=== PATIENT | female | born 1985 | race Caucasian/White ===

== ENCOUNTER → 2018-08-27 | Outpatient (CLI) | payer MEDICAID, OTHER ==
[~2018-08-27] MED LIST: MULT-241 PO; OXYC-12 PO
--- NOTE | 2018-08-27 13:16 | Diagnostic Imaging Report ---
PROCEDURE: US Non-ob pelvis comp/trans. TECHNIQUE: Multiple realtime grayscale images were obtained of the pelvis in various projections endovaginally. Transabdominal imaging was also performed. INDICATION: Abnormal uterine bleeding. Findings: Uterus measures 6.3 x 4.5 x 3.5 cm. The endometrial thickness is 2 mm. There are no myometrial or endometrial masses. Uterus is retroflexed. The ovaries are obscured by bowel gas. There are no adnexal masses. There is no free pelvic fluid. Impression: Unremarkable sonographic appearance of the uterus. Both ovaries were obscured by bowel gas. There was however no evidence of adnexal mass. Dictated by: Dictated on workstation # [id number]
== END ==
LOC: RAD 11:37
PROVIDERS: ATTEND Obstetrics & Gynecology
DX: N93.8 Other specified abnormal uterine and vaginal bleeding (principal)
CPT/HCPCS: 76830; 76856

== ENCOUNTER 2018-09-20 10:04 | Outpatient (CLI) | payer OTHER ==
[~2018-09-20] VITALS: Ht 157.5 cm; Wt 72.1 kg
[2018-09-20 10:13] VITALS: BP 138/77
[2018-09-20 10:47] LABS: BASOPHILS % (AUTO) 1 % (0-10); EOSINOPHILS # (AUTO) 0.1 10^3/uL (0.0-0.3); EOSINOPHILS % (AUTO) 1 % (0-10); HEMATOCRIT 40 % (35-52); HEMOGLOBIN 13.3 G/DL (11.5-16.0); LYMPHOCYTES # (AUTO) 1.5 X 10^3 (1.0-4.0); LYMPHOCYTES % (AUTO) 27 % (12-44); MEAN CORPUSCULAR HEMOGLOBIN 26 PG (25-34); MEAN CORPUSCULAR HGB CONC 34 G/DL (32-36); MEAN CORPUSCULAR VOLUME 77 FL (80-99); MEAN PLATELET VOLUME 10.3 FL (7.4-10.4); MONOCYTES # (AUTO) 0.5 X 10^3 (0.0-1.0); MONOCYTES % (AUTO) 8 % (0-12); NEUTROPHILS # (AUTO) 3.6 X 10^3 (1.8-7.8); NEUTROPHILS % (AUTO) 63 % (42-75); PLATELET COUNT 347 10^3/uL (130-400); RED CELL DISTRIBUTION WIDTH 14.1 % (10.0-14.5); WHITE BLOOD COUNT 5.7 10^3/uL (4.3-11.0)
== END 2018-09-20 10:35 | disposition home or self-care (01) ==
LOC: PREOP 10:04
PROVIDERS: ATTEND Obstetrics & Gynecology
DX: Z01.812 Encounter for preprocedural laboratory examination (principal); Z11.2 Encounter for screening for other bacterial diseases; N85.00 Endometrial hyperplasia, unspecified
CPT/HCPCS: 36415; 85025; 86850; 86900; 86901; 87081

== ENCOUNTER 2018-09-27 06:18 | Day surgery (SDC) | payer OTHER ==
[~2018-09-27] VITALS: Ht 157.5 cm; Wt 72.1 kg
[2018-09-27] VITALS (14 sets, daily range): BP systolic 93–128; BP diastolic 39–96
[2018-09-27] MEDS ORDERED: LACTATED RINGERS 1,000 ML IV ONE (06:21)
--- OUTSIDE RECORDS SUMMARY | 2018-09-27 06:21 | XMS REPORT ---
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 Name Role Phone Migration, Doctor Unavailable Unavailable PROBLEMS Type Condition ICD9-CM Code [id number] Code Onset Dates Condition Status SNOMED Code Problem Dysfunctional uterine bleeding N93.8 Active 63737922 Problem Endometrial hyperplasia without atypia, complex N85.01 Active 35360809281668410 Problem Anxiety F41.9 Active 84163258 Problem Depressive disorder, not elsewhere classified F32.9 Active 01415259 ALLERGIES No Information ENCOUNTERS Encounter Location Date Diagnosis [facility] [address] [address] Jul, Endometrial hyperplasia without atypia, complex N85.01 and Dysfunctional uterine bleeding N93.8 [place] [id number] [address] Jun, Endometrial hyperplasia without atypia, complex N85.01 and Dysfunctional uterine bleeding N93.8 [facility] [id number] [place] [address] Jun, Strep throat J02.0 and Sore throat J02.9 [facility] [id number] [place] [address] Jun, [facility] [address] [address] Jun, Acute nasopharyngitis J00 and Sore throat J02.9 [facility] [address] [address] Jun, [facility] [address] [address] 28 Jun, 2018 Irregular bleeding N92.6 and Dysfunctional uterine bleeding N93.8 [place] [address] [id number] [address] Jun, [facility] [id number] [place] [address] May, [facility] [id number] [place] [address] May, Acute bacterial conjunctivitis of left eye H10.32 [place] [id number] [place] [address] Jan, Encounter for immunization Z23 [place] [id number] [place] [address] Jun, [place] [id number] [place] [address] Jun, Irregular bleeding N92.6 [place] [id number] [place] [address] May, Well woman exam with routine gynecological exam Z01.419 and Irregular bleeding N92.6 [place] [id number] [place] [address] May, Anxiety state, unspecified F41.1 and Depressive disorder, not elsewhere classified F32.9 [place] [id number] [place] [address] Mar, Anxiety F41.9 and Irregular bleeding N92.6 [place] [id number] [place] [address] Mar, [place] [id number] [place] [address] Mar, Encounter for immunization Z23 [facility] [id number] [place] [address] Sep, Acute bacterial conjunctivitis of right eye H10.31 [facility] [id number] [place] [address] Mar, Sore throat J02.9 [facility] [place] [facility] [address] [id number] [place] [address] 14 Jul, 2014 [facility] [place] [facility] [address] [id number] [place] [address] Jul, [facility] [place] [facility] [address] [id number] [place] [address] Mar, [facility] [place] [facility] [address] [id number] [place] [address] Mar, [facility] [place] [facility] [address] [id number] [place] [address] Jul, [facility] [place] [facility] [address] [id number] [place] [address] Jul, [facility] [place] [facility] [address] [id number] [place] [address] Jul, [facility] [place] [facility] [address] [id number] [place] [address] Jul, [facility] [place] [facility] [address] [id number] [place] [address] Jul, [facility] [place] [facility] [address] [id number] [place] [address] Jul, [facility] [place] [facility] [address] [id number] [place] [address] Jul, [facility] [place] [facility] [address] [id number] [address] Jun, [facility] [place] [facility] [address] [id number] [place] [address] Jun, [facility] [place] [facility] [address] [id number] [place] [address] Jun, [facility] [place] [facility] [address] [id number] [place] [address] Jun, [facility] [place] [facility] [address] [id number] [place] [address] 10 Jun, 2013 [facility] [address] [id number] [place] [address] Jun, [facility] [place] [facility] [address] [id number] [place] [address] Nov, [facility] [address] [id number] [place] [address] Nov, [facility] [place] [facility] [address] [id number] [place] [address] Oct, [facility] [address] [id number] [place] [address] Sep, [facility] [place] [facility] [address] [id number] [place] [address] Sep, [facility] [address] [id number] [place] [address] Jul, [facility] [address] [id number] [place] [address] Mar, [facility] [place] [facility] [address] [id number] [place] [address] Mar, [facility] [address] [facility] [id number] [place] [address] Mar, [facility] [place] [facility] [address] [id number] [place] [address] Mar, [facility] [place] [facility] [address] [id number] [place] [address] Jan, [facility] [place] [facility] [address] [id number] [place] [address] Jan, [facility] [place] [facility] [address] [id number] [place] [address] Jan, [facility] [place] [facility] [address] [id number] [place] [address] Jan, [facility] [place] [facility] [address] [id number] [place] [address] Jan, [facility] [place] [facility] [address] [id number] [place] [address] Jan, [facility] [place] [facility] [address] [id number] [place] [address] Jan, [facility] [place] [facility] [address] [id number] [place] [address] 29 Dec, 2011 [facility] [place] [facility] [address] [id number] [place] [address] 28 Dec, 2011 [facility] [place] [facility] [address] [id number] [place] [address] Dec, [facility] [place] [facility] [address] [id number] [place] [address] Dec, [facility] [place] [facility] [address] [id number] [place] [address] Nov, [facility] [place] [facility] [address] [id number] [place] [address] Nov, [facility] [place] [facility] [address] [id number] [address] Nov, [facility] [place] [facility] [address] [id number] [address] Nov, [facility] [place] [facility] [address] [id number] [place] [address] Nov, [facility] [place] [facility] [address] [id number] [place] [address] Oct, [facility] [place] [facility] [address] [id number] [address] Oct, [facility] [place] [facility] [address] [id number] [place] [address] Sep, [facility] [place] [facility] [address] [id number] [address] 15 Sep, 2011 [facility] [address] [id number] [place] [address] 13 Sep, 2011 [facility] [place] [facility] [address] [id number] [place] [address] 12 Sep, 2011 [facility] [place] [facility] [address] [facility] [id number] [place] [address] 11 Sep, 2011 [facility] [place] [facility] [address] [id number] [place] [address] 10 Sep, 2011 [facility] [place] [facility] [address] [id number] [place] [address] 07 Sep, 2011 [facility] [place] [facility] [address] [id number] [place] [address] August, [facility] [address] [address] August, [facility] [place] [facility] [address] [id number] [place] [address] 23 Jun, 2011 [facility] [place] [facility] [address] [id number] [place] [address] 19 Jun, 2011 [facility] [place] [facility] [address] [place] [id number] [address] Jun, [facility] [place] [facility] [address] [id number] [place] [address] Jun, [facility] [place] [facility] [address] [id number] [place] [address] 30 May, 2011 [facility] [place] [facility] [address] [id number] [place] [address] May, [facility] [place] [facility] [address] [facility] [id number] [place] [address] 2010 [facility] [place] [facility] [address] [id number] [place] [address] 14 Mar, 2009 [facility] [place] [facility] [address] [id number] [address] 27 Jan, 2009 [facility] [address] [address] 10 Sep, 2008 [facility] [address] [facility] [id number] [place] [address] August, [facility] [address] [address] Jul, [facility] [address] [facility] [id number] [address] Jun, [facility] [address] [address] 11 Jun, 2008 [facility] [address] [address] 14 May, 2008 [facility] [address] [address] 31 Mar, 2008 [facility] [address] [address] 16 Mar, 2008 [facility] [id number] [address] 13 Mar, 2008 [facility] [id number] [address] 13 Mar, 2008 IMMUNIZATIONS No Known Immunizations SOCIAL HISTORY Never Assessed REASON FOR VISIT [facility] PLAN OF CARE VITAL SIGNS MEDICATIONS Unknown Medications RESULTS No Results PROCEDURES No Known procedures INSTRUCTIONS MEDICATIONS ADMINISTERED No Known Medications MEDICAL (GENERAL) HISTORY Type Description Date Surgical History No know Surgical history Hospitalization History childbirth only
--- OUTSIDE RECORDS SUMMARY | 2018-09-27 06:21 | XMS REPORT ---
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01 and Dysfunctional uterine bleeding N93.8 [place] [address] [address] Jun, Endometrial hyperplasia without atypia, complex N85.01 and Dysfunctional uterine bleeding N93.8 [facility] [id number] [place] [address] Jun, Strep throat J02.0 and Sore throat J02.9 [facility] [id number] [place] [address] Jun, [facility] [address] [address] Jun, Acute nasopharyngitis J00 and Sore throat J02.9 [facility] [address] [address] Jun, [facility] [address] [address] 28 Jun, 2018 Irregular bleeding N92.6 and Dysfunctional uterine bleeding N93.8 [place] [address] [place] [address] [id number] [address] Jun, [facility] [id number] [place] [address] May, [facility] [id number] [place] [address] May, Acute bacterial conjunctivitis of left eye H10.32 [place] [id number] [place] [address] Jan, Encounter for immunization Z23 [place] [address] [id number] [place] [address] Jun, [place] [id number] [place] [address] Jun, Irregular bleeding N92.6 [place] [id number] [place] [address] May, Well woman exam with routine gynecological exam Z01.419 and Irregular bleeding N92.6 [place] [id number] [place] [address] May, Anxiety state, unspecified F41.1 and Depressive disorder, not elsewhere classified F32.9 [place] [address] [place] [address] Mar, Anxiety F41.9 and Irregular bleeding N92.6 [place] [address] [place] [id number] [place] [address] Mar, [place] [address] [place] [address] Mar, Encounter for immunization Z23 [facility] [id number] [place] [address] Sep, Acute bacterial conjunctivitis of right eye H10.31 [facility] [address] [place] [address] Mar, Sore throat J02.9 [facility] [place] [facility] [address] [id number] [place] [address] 14 Jul, 2014 [facility] [place] [facility] [address] [id number] [place] [address] Jul, [facility] [place] [facility] [address] [id number] [place] [address] Mar, [facility] [place] [facility] [address] [id number] [place] [address] Mar, [facility] [place] [facility] [address] [id number] [place] [address] Jul, [facility] [place] [facility] [address] [id number] [place] [address] Jul, [facility] [place] [facility] [address] [id number] [place] [address] Jul, [facility] [place] [facility] [address] [id number] [place] [address] Jul, [facility] [place] [facility] [address] [id number] [place] [address] Jul, [facility] [place] [facility] [address] [id number] [place] [address] Jul, [facility] [place] [facility] [address] [id number] [place] [address] Jul, [facility] [place] [facility] [address] [id number], [place] [address] Jun, [facility] [place] [facility] [address] [id number] [place] [address] Jun, [facility] [place] [facility] [address] [id number] [place] [address] Jun, [facility] [place] [facility] [address] [id number] [place] [address] Jun, [facility] [place] [facility] [address] [id number] [place] [address] 10 Jun, 2013 [facility] [address] [id number] [place] [address] Jun, [facility] [place] [facility] [address] [id number] [place] [address] Nov, [facility] [address] [id number] [place] [address] Nov, [facility] [place] [facility] [address] [id number] [place] [address] Oct, [facility] [address] [id number] [place] [address] Sep, [facility] [place] [facility] [address] [id number] [place] [address] Sep, [facility] [address] [id number] [place] [address] Jul, [facility] [address] [id number] [place] [address] Mar, [facility] [place] [facility] [address] [id number] [place] [address] Mar, [facility] [address] [facility] [id number] [place] [address] Mar, [facility] [place] [facility] [address] [id number] [place] [address] Mar, [facility] [place] [facility] [address] [id number] [place] [address] Jan, [facility] [place] [facility] [address] [id number] [place] [address] Jan, [facility] [place] [facility] [address] [id number] [place] [address] Jan, [facility] [place] [facility] [address] [id number] [place] [address] Jan, [facility] [place] [facility] [address] [id number] [place] [address] Jan, [facility] [place] [facility] [address] [id number] [place] [address] Jan, [facility] [place] [facility] [address] [id number] [place] [address] Jan, [facility] [place] [facility] [address] [id number] [place] [address] 29 Dec, 2011 [facility] [place] [facility] [address] [id number] [place] [address] 28 Dec, 2011 [facility] [place] [facility] [address] [id number] [place] [address] Dec, [facility] [place] [facility] [address] [id number] [place] [address] Dec, [facility] [place] [facility] [address] [id number] [place] [address] Nov, [facility] [place] [facility] [address] [id number] [place] [address] Nov, [facility] [place] [facility] [address] [id number], [place] [address] Nov, [facility] [place] [facility] [address] [id number], [place] [address] Nov, [facility] [place] [facility] [address] [id number], [place] [address] Nov, [facility] [place] [facility] [address] [id number] [place] [address] Oct, [facility] [place] [facility] [address] [id number], [place] [address] Oct, [facility] [place] [facility] [address] [id number], [place] [address] Sep, [facility] [place] [facility] [address] [id number], [place] [address] 15 Sep, 2011 [facility] [address] [id number] [place] [address] 13 Sep, 2011 [facility] [place] [facility] [address] [id number] [place] [address] 12 Sep, 2011 [facility] [place] [facility] [address] [facility] [id number] [place] [address] 11 Sep, 2011 [facility] [place] [facility] [address] [id number] [place] [address] 10 Sep, 2011 [facility] [place] [facility] [address] [id number] [place] [address] 07 Sep, 2011 [facility] [place] [facility] [address] [id number] [place] [address] August, [facility] [address] [place] [address] August, [facility] [place] [facility] [address] [id number] [place] [address] 23 Jun, 2011 [facility] [place] [facility] [address] [id number] [place] [address] 19 Jun, 2011 [facility] [place] [facility] [id number] [place] [address] Jun, [facility] [place] [facility] [address] [id number] [place] [address] Jun, [facility] [place] [facility] [address] [id number] [place] [address] 30 May, 2011 [facility] [place] [facility] [address] [id number] [place] [address] May, [facility] [place] [facility] [address] [facility] [id number] [place] [address] 2010 [facility] [place] [facility] [address] [id number] [place] [address] 14 Mar, 2009 [facility] [place] [facility] [address] [id number] [address] 27 Jan, 2009 [facility] [id number] [address] 10 Sep, 2008 [facility] [address] [facility] [id number], [place] [address] August, [facility] [id number], [place] [address] Jul, [facility] [address] [facility] [id number], [place] [address] Jun, [facility] [id number], [place] [address] 11 Jun, 2008 [facility] [id number], [place] [address] 14 May, 2008 [facility] [id number], [place] [address] 31 Mar, 2008 [facility] [id number], [place] [address] 16 Mar, 2008 [facility] [address] [id number], [place] [address] 13 Mar, 2008 [facility] [address] [id number], [place] [address] 13 Mar, 2008 IMMUNIZATIONS No Known Immunizations SOCIAL HISTORY Never Assessed REASON FOR VISIT [facility] [place] VITAL SIGNS MEDICATIONS Unknown Medications RESULTS No Results PROCEDURES No Known procedures INSTRUCTIONS MEDICATIONS ADMINISTERED No Known Medications MEDICAL (GENERAL) HISTORY Type Description Date Surgical History No know Surgical history Hospitalization History childbirth only
--- OUTSIDE RECORDS SUMMARY | 2018-09-27 06:22 | XMS REPORT ---
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.8 Active 86249887 Problem Endometrial hyperplasia without atypia, complex N85.01 Active [id number] Problem Anxiety F41.9 Active 09535429 Problem Depressive disorder, not elsewhere classified F32.9 Active 84962252 ALLERGIES No Information ENCOUNTERS Encounter Location Date Diagnosis [facility] [address] [address] Jul, Endometrial hyperplasia without atypia, complex N85.01 and Dysfunctional uterine bleeding N93.8 [facility] [id number] [place] [address] Jun, Endometrial hyperplasia without atypia, complex N85.01 and Dysfunctional uterine bleeding N93.8 [facility] [id number] [place] [address] 14 Jun, 2018 Strep throat J02.0 and Sore throat J02.9 [facility] [id number] [place] [address] 14 Jun, 2018 [facility] [id number] [place] [address] Jun, Acute nasopharyngitis J00 and Sore throat J02.9 [facility] [id number] [place] [address] 07 Jun, 2018 [facility] [id number] [place] [address] Jun, Irregular bleeding N92.6 and Dysfunctional uterine bleeding N93.8 [place] [id number] [place] [address] Jun, [place] [id number] [place] [address] May, [facility] [id number] [place] [address] May, Acute bacterial conjunctivitis of left eye H10.32 [place] [id number] [place] [address] Jan, Encounter for immunization Z23 [place] [id number] [place] [address] Jun, [place] [id number] [place] [address] Jun, Irregular bleeding N92.6 [place] [id number] [place] [address] May, Well woman exam with routine gynecological exam Z01.419 and Irregular bleeding N92.6 [place] [id number] [place] [address] May, Anxiety state, unspecified F41.1 and Depressive disorder, not elsewhere classified F32.9 [place] [id number] [place] [address] Mar, Anxiety F41.9 and Irregular bleeding N92.6 [place] [id number] [place] [address] Mar, [place] [id number] [place] [address] Mar, Encounter for immunization Z23 [facility] [id number] [place] [address] Sep, Acute bacterial conjunctivitis of right eye H10.31 [facility] [id number] [place] [address] Mar, Sore throat J02.9 [facility] [address] [facility] [id number] [place] [address] Jul, [facility] [address] [facility] [id number] [place] [address] Jul, [facility] [address] [facility] [id number] [place] [address] Mar, [facility] [address] [facility] [id number] [place] [address] Mar, [facility] [address] [facility] [id number] [place] [address] Jul, [facility] [address] [id number] [place] [address] Jul, [facility] [address] [id number] [place] [address] Jul, [facility] [address] [facility] [id number] [place] [address] Jul, [facility] [id number] [place] [address] Jul, [facility] [id number] [place] [address] Jul, [facility] [address] [facility] [id number] [address] Jul, [facility] [address] [facility] [id number] [place] [address] Jun, [facility] [address] [facility] [id number] [place] [address] Jun, [facility] [address] [facility] [id number] [address] Jun, [facility] [address] [address] Jun, [facility] [place] [facility] [address] [id number] [place] [address] Jun, [facility] [place] [facility] [address] [id number] [place] [address] Jun, [facility] [place] [facility] [address] [facility] [id number] [place] [address] Nov, [facility] [place] [facility] [address] [id number] [place] [address] Nov, [facility] [place] [facility] [address] [id number] [place] [address] Oct, [facility] [place] [facility] [address] [facility] [id number] [place] [address] Sep, [facility] [place] [facility] [address] [facility] [id number] [place] [address] Sep, [facility] [place] [facility] [address] [facility] [id number] [place] [address] Jul, [facility] [place] [facility] [address] [facility] [id number] [place] [address] Mar, [facility] [place] [facility] [address] [facility] [id number] [place] [address] Mar, [facility] [place] [facility] [address] [facility] [id number] [place] [address] 17 Mar, 2012 [facility] [place] [facility] [address] [facility] [id number] [place] [address] Mar, [facility] [place] [facility] [address] [id number] [place] [address] Jan, [facility] [place] [facility] [address] [facility] [id number] [place] [address] Jan, [facility] [place] [facility] [address] [facility] [id number], [place] [address] Jan, [facility] [place] [facility] [address] [id number] [place] [address] 17 Jan, 2012 [facility] [place] [facility] [address] [id number] [place] [address] Jan, [facility] [place] [facility] [address] [id number] [place] [address] Jan, [facility] [place] [facility] [address] [id number] [place] [address] 04 Jan, 2012 [facility] [place] [facility] [address] [id number] [place] [address] 29 Dec, 2011 [facility] [place] [facility] [address] [id number] [place] [address] 28 Dec, 2011 [facility] [place] [facility] [address] [id number] [place] [address] 27 Dec, 2011 [facility] [place] [facility] [address] [id number] [place] [address] Dec, [facility] [place] [facility] [address] [id number] [place] [address] Nov, [facility] [place] [facility] [address] [id number] [place] [address] Nov, [facility] [place] [facility] [address] [id number] [place] [address] Nov, [facility] [place] [facility] [address] [id number] [place] [address] Nov, [facility] [place] [facility] [address] [id number] [place] [address] Nov, [facility] [place] [facility] [address] [id number] [place] [address] Oct, [facility] [place] [facility] [address] [id number] [place] [address] Oct, [facility] [place] [facility] [address] [id number] [place] [address] 20 Sep, 2011 [facility] [place] [facility] [address] [id number] [place] [address] 15 Sep, 2011 [facility] [place] [facility] [address] [id number] [place] [address] 13 Sep, 2011 [facility] [place] [facility] [address] [id number] [place] [address] 12 Sep, 2011 [facility] [place] [facility] [address] [id number] [place] [address] 11 Sep, 2011 [facility] [place] [facility] [address] [id number] [place] [address] 10 Sep, 2011 [facility] [place] [facility] [address] [id number] [place] [address] 07 Sep, 2011 [facility] [place] [facility] [address] [id number] [place] [address] August, [facility] [place] [facility] [address] [id number] [place] [address] August, [facility] [place] [facility] [address] [id number] [place] [address] Jun, [facility] [place] [facility] [address] [id number] [place] [address] Jun, [facility] [place] [facility] [address] [id number] [place] [address] Jun, [facility] [place] [facility] [address] [id number] [place] [address] Jun, [facility] [place] [facility] [address] [id number] [place] [address] May, [facility] [place] [facility] [address] [id number] [place] [address] May, [facility] [place] [facility] [address] [id number] [place] [address] May, [facility] [place] [facility] [address] [address] 14 Mar, 2009 [facility] [address] [address] 27 Jan, 2009 [facility] [address] [address] 10 Sep, 2008 [facility] [address] [address] 13 Aug, 2008 [facility] [address] [address] 10 Jul, 2008 [facility] [id number] [place] [address] 11 Jun, 2008 [facility] [address] [address] 11 Jun, 2008 [facility] [address] [address] 14 May, 2008 [facility] [address] [address] 31 Mar, 2008 [facility] [address] [address] 16 Mar, 2008 [facility] [address] [address] 13 Mar, 2008 [facility] [id number] [address] 13 Mar, 2008 IMMUNIZATIONS No Known Immunizations SOCIAL HISTORY Never Assessed REASON FOR VISIT Requests return call PLAN OF CARE VITAL SIGNS MEDICATIONS Unknown Medications RESULTS No Results PROCEDURES No Known procedures INSTRUCTIONS MEDICATIONS ADMINISTERED No Known Medications MEDICAL (GENERAL) HISTORY Type Description Date Surgical History No know Surgical history Hospitalization History childbirth only
--- OUTSIDE RECORDS SUMMARY | 2018-09-27 06:22 | XMS REPORT ---
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.8 Active 17698379 Problem Endometrial hyperplasia without atypia, complex N85.01 Active [id number] Problem Anxiety F41.9 Active 06347935 Problem Depressive disorder, not elsewhere classified F32.9 Active 77096450 ALLERGIES No Information ENCOUNTERS Encounter Location Date Diagnosis [facility] [address] [address] Jul, Endometrial hyperplasia without atypia, complex N85.01 and Dysfunctional uterine bleeding N93.8 [place] [address] [address] Jun, Endometrial hyperplasia without atypia, complex N85.01 and Dysfunctional uterine bleeding N93.8 [facility] [id number] [place] [address] Jun, Strep throat J02.0 and Sore throat J02.9 [facility] [id number] [place] [address] Jun, [facility] [address] [address] Jun, Acute nasopharyngitis J00 and Sore throat J02.9 [facility] [address] [address] Jun, [facility] [address] [address] 28 Jun, 2018 Irregular bleeding N92.6 and Dysfunctional uterine bleeding N93.8 [place] [id number] [address] Jun, [facility] [id number] [place] [address] May, [facility] [id number] [place] [address] May, Acute bacterial conjunctivitis of left eye H10.32 [place] [id number] [place] [address] Jan, Encounter for immunization Z23 [place] [id number] [place] [address] Jun, [place] [id number] [place] [address] Jun, Irregular bleeding N92.6 [place] [id number] [place] [address] May, Well woman exam with routine gynecological exam Z01.419 and Irregular bleeding N92.6 [place] [id number] [place] [address] May, Anxiety state, unspecified F41.1 and Depressive disorder, not elsewhere classified F32.9 [place] [address] [place] [address] Mar, Anxiety F41.9 and Irregular bleeding N92.6 [place] [id number] [place] [address] Mar, [place] [address] [place] [address] Mar, Encounter for immunization Z23 [facility] [id number] [place] [address] Sep, Acute bacterial conjunctivitis of right eye H10.31 [facility] [address] [place] [address] Mar, Sore throat J02.9 [facility] [place] [facility] [address] [id number] [place] [address] 14 Jul, 2014 [facility] [place] [facility] [address] [id number] [place] [address] Jul, [facility] [place] [facility] [address] [id number] [place] [address] Mar, [facility] [place] [facility] [address] [id number] [place] [address] Mar, [facility] [place] [facility] [address] [id number] [place] [address] Jul, [facility] [place] [facility] [address] [id number] [place] [address] Jul, [facility] [place] [facility] [address] [id number] [place] [address] Jul, [facility] [place] [facility] [address] [id number] [place] [address] Jul, [facility] [place] [facility] [address] [id number] [place] [address] Jul, [facility] [place] [facility] [address] [id number] [place] [address] Jul, [facility] [place] [facility] [address] [id number] [place] [address] Jul, [facility] [place] [facility] [address] [id number] [address] Jun, [facility] [place] [facility] [address] [id number] [place] [address] Jun, [facility] [place] [facility] [address] [id number] [place] [address] Jun, [facility] [place] [facility] [address] [id number] [place] [address] Jun, [facility] [place] [facility] [address] [id number] [place] [address] 10 Jun, 2013 [facility] [address] [id number] [place] [address] Jun, [facility] [place] [facility] [address] [id number] [place] [address] Nov, [facility] [address] [id number] [place] [address] Nov, [facility] [place] [facility] [address] [id number] [place] [address] Oct, [facility] [address] [id number] [place] [address] Sep, [facility] [place] [facility] [address] [id number] [place] [address] Sep, [facility] [address] [id number] [place] [address] Jul, [facility] [address] [id number] [place] [address] Mar, [facility] [place] [facility] [address] [id number] [place] [address] Mar, [facility] [address] [facility] [id number] [place] [address] Mar, [facility] [place] [facility] [address] [id number] [place] [address] Mar, [facility] [place] [facility] [address] [id number] [place] [address] Jan, [facility] [place] [facility] [address] [id number] [place] [address] Jan, [facility] [place] [facility] [address] [id number] [place] [address] Jan, [facility] [place] [facility] [address] [id number] [place] [address] Jan, [facility] [place] [facility] [address] [id number] [place] [address] Jan, [facility] [place] [facility] [address] [id number] [place] [address] Jan, [facility] [place] [facility] [address] [id number] [place] [address] Jan, [facility] [place] [facility] [address] [id number] [place] [address] 29 Dec, 2011 [facility] [place] [facility] [address] [id number] [place] [address] 28 Dec, 2011 [facility] [place] [facility] [address] [id number] [place] [address] Dec, [facility] [place] [facility] [address] [id number] [place] [address] Dec, [facility] [place] [facility] [address] [id number] [place] [address] Nov, [facility] [place] [facility] [address] [id number] [place] [address] Nov, [facility] [place] [facility] [address] [id number], [place] [address] Nov, [facility] [place] [facility] [address] [id number], [place] [address] Nov, [facility] [place] [facility] [address] [id number], [place] [address] Nov, [facility] [place] [facility] [address] [id number] [place] [address] Oct, [facility] [place] [facility] [address] [id number], [place] [address] Oct, [facility] [place] [facility] [address] [id number], [place] [address] Sep, [facility] [place] [facility] [address] [id number], [place] [address] 15 Sep, 2011 [facility] [address] [id number] [place] [address] 13 Sep, 2011 [facility] [place] [facility] [address] [id number] [place] [address] 12 Sep, 2011 [facility] [place] [facility] [address] [facility] [id number] [place] [address] 11 Sep, 2011 [facility] [place] [facility] [address] [id number] [place] [address] 10 Sep, 2011 [facility] [place] [facility] [address] [id number] [place] [address] 07 Sep, 2011 [facility] [place] [facility] [address] [id number] [place] [address] August, [facility] [id number] [place] [address] August, [facility] [place] [facility] [address] [id number] [place] [address] 23 Jun, 2011 [facility] [place] [facility] [address] [id number] [place] [address] 19 Jun, 2011 [facility] [place] [facility] [id number] [place] [address] Jun, [facility] [place] [facility] [address] [id number] [place] [address] Jun, [facility] [place] [facility] [address] [id number] [place] [address] 30 May, 2011 [facility] [place] [facility] [address] [id number] [place] [address] May, [facility] [place] [facility] [address] [facility] [id number] [place] [address] 2010 [facility] [place] [facility] [address] [id number] [place] [address] 14 Mar, 2009 [facility] [place] [facility] [address] [id number] [address] 27 Jan, 2009 [facility] [id number] [address] 10 Sep, 2008 [facility] [address] [facility] [id number], [place] [address] August, [facility] [id number] [place] [address] Jul, [facility] [address] [facility] [id number], [place] [address] Jun, [facility] [id number] [address] 11 Jun, 2008 [facility] [address], [place] [address] 14 May, 2008 [facility] [address] [place] [address] 31 Mar, 2008 [facility] [address] [address] 16 Mar, 2008 [facility] [address] [id number] [address] 13 Mar, 2008 [facility] [id number] [address] 13 Mar, 2008 IMMUNIZATIONS No Known Immunizations SOCIAL HISTORY Never Assessed REASON FOR VISIT [facility] PLAN OF CARE VITAL SIGNS MEDICATIONS Unknown Medications RESULTS No Results PROCEDURES No Known procedures INSTRUCTIONS MEDICATIONS ADMINISTERED No Known Medications MEDICAL (GENERAL) HISTORY Type Description Date Surgical History No know Surgical history Hospitalization History childbirth only
--- OUTSIDE RECORDS SUMMARY | 2018-09-27 06:22 | XMS REPORT ---
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 Active 82543797 Problem Endometrial hyperplasia without atypia, complex N85.01 Active [id number] Problem Anxiety F41.9 Active 52639739 Problem Depressive disorder, not elsewhere classified F32.9 Active 69793494 ALLERGIES No Information ENCOUNTERS Encounter Location Date Diagnosis [facility] [address] [address] Jul, Endometrial hyperplasia without atypia, complex N85.01 and Dysfunctional uterine bleeding N93.8 [place] [address] [address] Jun, Endometrial hyperplasia without atypia, complex N85.01 and Dysfunctional uterine bleeding N93.8 [facility] [id number] [place] [address] Jun, Strep throat J02.0 and Sore throat J02.9 [facility] [id number] [place] [address] Jun, [facility] [address] [address] Jun, Acute nasopharyngitis J00 and Sore throat J02.9 [facility] [address] [address] Jun, [facility] [address] [address] 28 Jun, 2018 Irregular bleeding N92.6 and Dysfunctional uterine bleeding N93.8 [place] [address] [place] [address] [address] Jun, [facility] [id number] [place] [address] May, [facility] [id number] [place] [address] May, Acute bacterial conjunctivitis of left eye H10.32 [place] [id number] [place] [address] Jan, Encounter for immunization Z23 [place] [id number] [place] [address] Jun, [place] [id number] [place] [address] Jun, Irregular bleeding N92.6 [place] [id number] [place] [address] May, Well woman exam with routine gynecological exam Z01.419 and Irregular bleeding N92.6 [place] [id number] [place] [address] May, Anxiety state, unspecified F41.1 and Depressive disorder, not elsewhere classified F32.9 [place] [address] [place] [address] Mar, Anxiety F41.9 and Irregular bleeding N92.6 [place] [id number] [place] [address] Mar, [place] [address] [place] [address] Mar, Encounter for immunization Z23 [facility] [id number] [place] [address] Sep, Acute bacterial conjunctivitis of right eye H10.31 [facility] [address] [place] [address] Mar, Sore throat J02.9 [facility] [place] [facility] [address] [id number] [place] [address] 14 Jul, 2014 [facility] [place] [facility] [address] [id number] [place] [address] Jul, [facility] [place] [facility] [address] [id number] [place] [address] Mar, [facility] [place] [facility] [address] [id number] [place] [address] Mar, [facility] [place] [facility] [address] [id number] [place] [address] Jul, [facility] [place] [facility] [address] [id number] [place] [address] Jul, [facility] [place] [facility] [address] [id number] [place] [address] Jul, [facility] [place] [facility] [address] [id number] [place] [address] Jul, [facility] [place] [facility] [address] [id number] [place] [address] Jul, [facility] [place] [facility] [address] [id number] [place] [address] Jul, [facility] [place] [facility] [address] [id number] [place] [address] Jul, [facility] [place] [facility] [address] [id number], [place] [address] Jun, [facility] [place] [facility] [address] [id number] [place] [address] Jun, [facility] [place] [facility] [address] [id number] [place] [address] Jun, [facility] [place] [facility] [address] [id number] [place] [address] Jun, [facility] [place] [facility] [address] [id number] [place] [address] 10 Jun, 2013 [facility] [address] [id number] [place] [address] Jun, [facility] [place] [facility] [address] [id number] [place] [address] Nov, [facility] [address] [id number] [place] [address] Nov, [facility] [place] [facility] [address] [id number] [place] [address] Oct, [facility] [address] [id number] [place] [address] Sep, [facility] [place] [facility] [address] [id number] [place] [address] Sep, [facility] [address] [id number] [place] [address] Jul, [facility] [address] [id number] [place] [address] Mar, [facility] [place] [facility] [address] [id number] [place] [address] Mar, [facility] [address] [facility] [id number] [place] [address] Mar, [facility] [place] [facility] [address] [id number] [place] [address] Mar, [facility] [place] [facility] [address] [id number] [place] [address] Jan, [facility] [place] [facility] [address] [id number] [place] [address] Jan, [facility] [place] [facility] [address] [id number] [place] [address] Jan, [facility] [place] [facility] [address] [id number] [place] [address] Jan, [facility] [place] [facility] [address] [id number] [place] [address] Jan, [facility] [place] [facility] [address] [id number] [place] [address] Jan, [facility] [place] [facility] [address] [id number] [place] [address] Jan, [facility] [place] [facility] [address] [id number] [place] [address] 29 Dec, 2011 [facility] [place] [facility] [address] [id number] [place] [address] 28 Dec, 2011 [facility] [place] [facility] [address] [id number] [place] [address] Dec, [facility] [place] [facility] [address] [id number] [place] [address] Dec, [facility] [place] [facility] [address] [id number] [place] [address] Nov, [facility] [place] [facility] [address] [id number] [place] [address] Nov, [facility] [place] [facility] [address] [id number], [place] [address] Nov, [facility] [place] [facility] [address] [id number], [place] [address] Nov, [facility] [place] [facility] [address] [id number], [place] [address] Nov, [facility] [place] [facility] [address] [id number] [place] [address] Oct, [facility] [place] [facility] [address] [id number], [place] [address] Oct, [facility] [place] [facility] [address] [id number], [place] [address] Sep, [facility] [place] [facility] [address] [id number], [place] [address] 15 Sep, 2011 [facility] [address] [id number] [place] [address] 13 Sep, 2011 [facility] [place] [facility] [address] [id number] [place] [address] 12 Sep, 2011 [facility] [place] [facility] [address] [facility] [id number] [place] [address] 11 Sep, 2011 [facility] [place] [facility] [address] [id number] [place] [address] 10 Sep, 2011 [facility] [place] [facility] [address] [id number] [place] [address] 07 Sep, 2011 [facility] [place] [facility] [address] [id number] [place] [address] August, [facility] [id number] [place] [address] August, [facility] [place] [facility] [address] [id number] [place] [address] 23 Jun, 2011 [facility] [place] [facility] [address] [id number] [place] [address] 19 Jun, 2011 [facility] [place] [facility] [address] [place] [id number] [place] [address] Jun, [facility] [place] [facility] [address] [id number] [place] [address] Jun, [facility] [place] [facility] [address] [id number] [place] [address] 30 May, 2011 [facility] [place] [facility] [address] [id number] [place] [address] May, [facility] [place] [facility] [address] [facility] [id number] [place] [address] 2010 [facility] [place] [facility] [address] [id number] [place] [address] 14 Mar, 2009 [facility] [place] [facility] [address], [place] [address] Jan, [facility] [address], [place] [address] Sep, [facility] [address], [place] [address] August, [facility] [address], [place] [address] Jul, [facility] [address], [place] [address] Jun, [facility] [address] [place] [address] Jun, [facility] [address], [place] [address] May, [facility] [id number] [address] Mar, [facility] [address], [place] [address] 16 Mar, 2008 [facility] [address], [place] [address] Mar, [facility] [address], [place] [address] Mar, IMMUNIZATIONS No Known Immunizations SOCIAL HISTORY Never Assessed REASON FOR VISIT [facility] [place] PLAN OF CARE VITAL SIGNS MEDICATIONS Medication Instructions Dosage Frequency Start Date End Date Duration Status Amoxicillin 500 mg 1 capsule by Oral route 3 times per day for 10 days Jun, Active Zithromax Z-Warren 250 mg 2 tablet by Oral route 1 time per day for 1 days then take 1 tab daily on days 2-5 Jun, Active Michelle 28 3-0.03 mg take 1 tablet by oral route once daily Jul, Active Lotrimin AF 1 % apply to the affected and surrounding areas of skin by Topical route 2 times per day Disp 30 g Mar, Active RESULTS No Results PROCEDURES No Known procedures INSTRUCTIONS MEDICATIONS ADMINISTERED No Known Medications MEDICAL (GENERAL) HISTORY Type Description Date Surgical History No know Surgical history Hospitalization History childbirth only
--- OUTSIDE RECORDS SUMMARY | 2018-09-27 06:22 | XMS REPORT ---
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 Active 58455235 Problem Endometrial hyperplasia without atypia, complex N85.01 Active [id number] Problem Anxiety F41.9 Active 00061292 Problem Depressive disorder, not elsewhere classified F32.9 Active 06003552 ALLERGIES No Information ENCOUNTERS Encounter Location Date Diagnosis [facility] [address] [address] Jul, Endometrial hyperplasia without atypia, complex N85.01 and Dysfunctional uterine bleeding N93.8 [place] [address] [address] Jun, Endometrial hyperplasia without atypia, complex N85.01 and Dysfunctional uterine bleeding N93.[address] [facility] [id number] [place] [address] Jun, Strep throat J02.0 and Sore throat J02.9 [facility] [id number] [place] [address] Jun, [facility] [address] [address] Jun, Acute nasopharyngitis J00 and Sore throat J02.9 [facility] [address] [address] Jun, [facility] [address] [address] 28 Jun, 2018 Irregular bleeding N92.6 and Dysfunctional uterine bleeding N93.8 [place] [address] [place] [address] [id number] [address] Jun, [facility] [id number] [place] [address] May, [facility] [id number] [place] [address] May, Acute bacterial conjunctivitis of left eye H10.32 [place] [address] [place] [id number] [place] [address] Jan, Encounter for immunization Z23 [place] [address] [place] [id number] [place] [address] Jun, [place] [address] [place] [address] [id number] [place] [address] Jun, Irregular bleeding N92.6 [place] [address] [place] [address] [id number] [place] [address] May, Well woman exam with routine gynecological exam Z01.419 and Irregular bleeding N92.6 [place] [address] [place] [address] [id number] [place] [address] May, Anxiety state, unspecified F41.1 and Depressive disorder, not elsewhere classified F32.9 [place] [id number] [place] [address] Mar, Anxiety F41.9 and Irregular bleeding N92.6 [place] [address] [place] [id number] [place] [address] Mar, [place] [id number] [place] [address] Mar, Encounter for immunization Z23 [facility] [address] [id number] [place] [address] Sep, Acute bacterial conjunctivitis of right eye H10.31 [facility] [id number] [place] [address] Mar, Sore throat J02.9 [facility] [place] [facility] [address] [id number] [place] [address] 14 Jul, 2014 [facility] [place] [facility] [address] [id number] [place] [address] Jul, [facility] [place] [facility] [address] [id number] [place] [address] Mar, [facility] [place] [facility] [address] [id number] [place] [address] Mar, [facility] [place] [facility] [address] [id number] [place] [address] Jul, [facility] [place] [facility] [address] [id number] [place] [address] Jul, [facility] [place] [facility] [address] [id number] [place] [address] Jul, [facility] [place] [facility] [address] [id number] [place] [address] Jul, [facility] [place] [facility] [address] [id number] [place] [address] Jul, [facility] [place] [facility] [address] [id number] [place] [address] Jul, [facility] [place] [facility] [address] [id number] [place] [address] Jul, [facility] [place] [facility] [address] [id number], [place] [address] Jun, [facility] [place] [facility] [address] [id number] [place] [address] Jun, [facility] [place] [facility] [address] [id number] [place] [address] Jun, [facility] [place] [facility] [address] [id number] [place] [address] Jun, [facility] [place] [facility] [address] [id number] [place] [address] 10 Jun, 2013 [facility] [address] [id number] [place] [address] Jun, [facility] [place] [facility] [address] [id number] [place] [address] Nov, [facility] [address] [id number] [place] [address] Nov, [facility] [place] [facility] [address] [id number] [place] [address] Oct, [facility] [address] [id number] [place] [address] Sep, [facility] [place] [facility] [address] [id number] [place] [address] Sep, [facility] [address] [id number] [place] [address] Jul, [facility] [address] [id number] [place] [address] Mar, [facility] [place] [facility] [address] [id number] [place] [address] Mar, [facility] [address] [facility] [id number] [place] [address] Mar, [facility] [place] [facility] [address] [id number] [place] [address] Mar, [facility] [place] [facility] [address] [id number] [place] [address] Jan, [facility] [place] [facility] [address] [id number] [place] [address] Jan, [facility] [place] [facility] [address] [id number] [place] [address] Jan, [facility] [place] [facility] [address] [id number] [place] [address] Jan, [facility] [place] [facility] [address] [id number] [place] [address] Jan, [facility] [place] [facility] [address] [id number] [place] [address] Jan, [facility] [place] [facility] [address] [id number] [place] [address] Jan, [facility] [place] [facility] [address] [id number] [place] [address] 29 Dec, 2011 [facility] [place] [facility] [address] [id number] [place] [address] 28 Dec, 2011 [facility] [place] [facility] [address] [id number] [place] [address] Dec, [facility] [place] [facility] [address] [id number] [place] [address] Dec, [facility] [place] [facility] [address] [id number] [place] [address] Nov, [facility] [place] [facility] [address] [id number] [place] [address] Nov, [facility] [place] [facility] [address] [id number], [place] [address] Nov, [facility] [place] [facility] [address] [id number], [place] [address] Nov, [facility] [place] [facility] [address] [id number], [place] [address] Nov, [facility] [place] [facility] [address] [id number] [place] [address] Oct, [facility] [place] [facility] [address] [id number], [place] [address] Oct, [facility] [place] [facility] [address] [id number], [place] [address] Sep, [facility] [place] [facility] [address] [id number], [place] [address] 15 Sep, 2011 [facility] [address] [id number] [place] [address] 13 Sep, 2011 [facility] [place] [facility] [address] [id number] [place] [address] 12 Sep, 2011 [facility] [place] [facility] [address] [facility] [id number] [place] [address] 11 Sep, 2011 [facility] [place] [facility] [address] [id number] [place] [address] 10 Sep, 2011 [facility] [place] [facility] [address] [id number] [place] [address] 07 Sep, 2011 [facility] [place] [facility] [address] [id number] [place] [address] August, [facility] [id number] [place] [address] August, [facility] [place] [facility] [address] [id number] [place] [address] 23 Jun, 2011 [facility] [place] [facility] [address] [id number] [place] [address] 19 Jun, 2011 [facility] [place] [facility] [id number] [place] [address] Jun, [facility] [place] [facility] [address] [id number] [place] [address] Jun, [facility] [place] [facility] [address] [id number] [place] [address] 30 May, 2011 [facility] [place] [facility] [address] [id number] [place] [address] May, [facility] [place] [facility] [address] [facility] [id number] [place] [address] 2010 [facility] [place] [facility] [address] [id number] [place] [address] 14 Mar, 2009 [facility] [place] [facility] [id number] [address] 27 Jan, 2009 [facility] [address], [place] [address] 10 Sep, 2008 [facility] [address] [facility] [id number], [place] [address] August, [facility] [address], [place] [address] Jul, [facility] [address] [facility] [id number], [place] [address] Jun, [facility] [id number] [place] [address] 11 Jun, 2008 [facility] [id number] [address] 14 May, 2008 [facility] [id number] [address] 31 Mar, 2008 [facility] [id number], [place] [address] 16 Mar, 2008 [facility] [id number], [place] [address] 13 Mar, 2008 [facility] [id number] [address] 13 Mar, 2008 IMMUNIZATIONS No Known Immunizations SOCIAL HISTORY Never Assessed REASON FOR VISIT [facility] [place] PLAN OF CARE VITAL SIGNS MEDICATIONS Unknown Medications RESULTS No Results PROCEDURES No Known procedures INSTRUCTIONS MEDICATIONS ADMINISTERED No Known Medications MEDICAL (GENERAL) HISTORY Type Description Date Surgical History No know Surgical history Hospitalization History childbirth only
--- OUTSIDE RECORDS SUMMARY | 2018-09-27 06:23 | XMS REPORT ---
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 92042508 Problem Anxiety F41.9 Active 37034787 ALLERGIES No Information ENCOUNTERS Encounter Location Date Diagnosis [place] [address] [address] Jun, [facility] [address] [address] Jun, Strep throat J02.0 and Sore throat J02.9 [facility] [address] [place] [address] [id number] [place] [address] Jun, [facility] [address] [address] Jun, Acute nasopharyngitis J00 and Sore throat J02.9 [place] [address] [place] [id number] [place] [address] Jun, [facility] [address] [address] Jun, Irregular bleeding N92.6 and Dysfunctional uterine bleeding N93.8 [facility] [address] [address] Jun, [facility] [address] [address] [id number] [place] [address] May, [facility] [id number] [place] [address] May, Acute bacterial conjunctivitis of left eye H10.32 [facility] [id number] [place] [address] Jan, Encounter for immunization Z23 [facility] [id number] [place] [address] Jun, [facility] [id number] [place] [address] Jun, Irregular bleeding N92.6 [facility] [id number] [place] [address] May, Well woman exam with routine gynecological exam Z01.419 and Irregular bleeding N92.6 [place] [address] [address] May, Anxiety state, unspecified F41.1 and Depressive disorder, not elsewhere classified F32.9 [facility] [address] [address] Mar, Anxiety F41.9 and Irregular bleeding N92.6 [facility] [address] [id number] [place] [address] Mar, [facility] [id number] [place] [address] Mar, Encounter for immunization Z23 [facility] [id number] [place] [address] Sep, Acute bacterial conjunctivitis of right eye H10.31 [facility] [id number] [place] [address] Mar, Sore throat J02.9 [facility] [id number] [place] [address] 14 Jul, 2014 [facility] [address] [place] [address] [id number] [place] [address] 13 Jul, 2014 [facility] [address] [address] Mar, [facility] [place] [facility] [address] [id number] [place] [address] Mar, [facility] [place] [facility] [address] [id number] [place] [address] Jul, [facility] [place] [facility] [address] [id number] [place] [address] Jul, [facility] [place] [facility] [address] [id number] [place] [address] Jul, [facility] [place] [facility] [address] [id number] [place] [address] Jul, [facility] [place] [facility] [address] [id number] [place] [address] Jul, [facility] [place] [facility] [address] [id number] [place] [address] Jul, [facility] [place] [facility] [address] [id number] [place] [address] Jul, [facility] [place] [facility] [address] [id number] [place] [address] Jun, [facility] [place] [facility] [address] [id number] [place] [address] Jun, [facility] [place] [facility] [address] [id number] [place] [address] Jun, [facility] [place] [facility] [address] [id number] [place] [address] Jun, [facility] [place] [facility] [address] [id number] [place] [address] Jun, [facility] [place] [facility] [address] [id number] [place] [address] Jun, [facility] [place] [facility] [address] [id number] [place] [address] Nov, [facility] [place] [facility] [address] [id number] [place] [address] Nov, [facility] [place] [facility] [address] [id number] [place] [address] Oct, [facility] [place] [facility] [address] [id number] [place] [address] Sep, [facility] [place] [facility] [address] [id number] [place] [address] Sep, [facility] [place] [facility] [address] [id number] [place] [address] Jul, [facility] [place] [facility] [address] [id number] [place] [address] Mar, [facility] [place] [facility] [address] [id number] [place] [address] Mar, [facility] [place] [facility] [address] [id number] [place] [address] Mar, [facility] [place] [facility] [address] [id number] [place] [address] Mar, [facility] [place] [facility] [address] [id number] [place] [address] Jan, [facility] [place] [facility] [address] [id number] [place] [address] 24 Jan, 2012 [facility] [place] [facility] [address] [id number] [place] [address] Jan, [facility] [place] [facility] [address] [id number] [place] [address] Jan, [facility] [place] [facility] [address] [id number] [place] [address] Jan, [facility] [place] [facility] [address] [id number] [place] [address] Jan, [facility] [place] [facility] [address] [id number] [place] [address] Jan, [facility] [place] [facility] [address] [id number] [place] [address] 29 Dec, 2011 [facility] [place] [facility] [address] [id number] [place] [address] 28 Dec, 2011 [facility] [place] [facility] [address] [id number] [place] [address] 27 Dec, 2011 [facility] [place] [facility] [address] [id number] [place] [address] 12 Dec, 2011 [facility] [place] [facility] [address] [id number] [place] [address] Nov, [facility] [place] [facility] [address] [id number] [place] [address] Nov, [facility] [place] [facility] [address] [id number] [place] [address] Nov, [facility] [place] [facility] [address] [id number] [place] [address] Nov, [facility] [place] [facility] [address] [id number] [place] [address] Nov, [facility] [place] [facility] [address] [id number] [place] [address] Oct, [facility] [place] [facility] [address] [id number] [place] [address] Oct, [facility] [place] [facility] [address] [id number] [address] Sep, [facility] [place] [facility] [address] [id number] [place] [address] Sep, [facility] [place] [facility] [address] [id number] [place] [address] Sep, [facility] [place] [facility] [address] [id number] [place] [address] Sep, [facility] [place] [facility] [address] [id number] [place] [address] 11 Sep, 2011 [facility] [address] [id number] [place] [address] 10 Sep, 2011 [facility] [address] [id number] [place] [address] 07 Sep, 2011 [facility] [address] [id number] [place] [address] August, [facility] [address] [id number] [place] [address] August, [facility] [address] [id number] [place] [address] Jun, [facility] [address] [id number] [place] [address] Jun, [facility] [address] [id number] [place] [address] Jun, [facility] [address] [id number] [place] [address] Jun, [facility] [address] [id number] [place] [address] May, [facility] [address] [id number] [place] [address] May, [facility] [address] [id number] [place] [address] May, [facility] [address] [id number] [place] [address] 14 Mar, 2009 [facility] [address] [id number] [place] [address] 27 Jan, 2009 [facility] [place] [facility] [address] [id number] [place] [address] 10 Sep, 2008 [facility] [address] [id number] [place] [address] August, [facility] [address] [place] [address] [id number] [address] Jul, [facility] [address] [address] Jun, [facility] [address] [address] Jun, [facility] [address] [id number] [place] [address] May, [facility] [address] [address] Mar, [facility] [id number] [place] [address] 16 Mar, 2008 [facility] [address] [address] 13 Mar, 2008 [facility] [address] [address] 13 Mar, 2008 IMMUNIZATIONS No Known Immunizations SOCIAL HISTORY Never Assessed REASON FOR VISIT EMR-[facility] [place]AN OF CARE VITAL SIGNS MEDICATIONS Unknown Medications RESULTS No Results PROCEDURES No Known procedures INSTRUCTIONS MEDICATIONS ADMINISTERED No Known Medications MEDICAL (GENERAL) HISTORY Type Description Date Surgical History No know Surgical history Hospitalization History childbirth only
--- OUTSIDE RECORDS SUMMARY | 2018-09-27 06:23 | XMS REPORT ---
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 53064400 Problem Anxiety F41.9 Active 76080210 ALLERGIES No Information ENCOUNTERS Encounter Location Date Diagnosis [place] [address] [address] Jun, [facility] [address] [address] Jun, Strep throat J02.0 and Sore throat J02.9 [facility] [address] [place] [id number] [place] [address] Jun, [facility] [address] [address] Jun, Acute nasopharyngitis J00 and Sore throat J02.9 [place] [address] [place] [id number] [place] [address] Jun, [facility] [address] [address] Jun, Irregular bleeding N92.6 and Dysfunctional uterine bleeding N93.8 [facility] [address] [address] Jun, [facility] [address] [place] [id number] [place] [address] May, [facility] [id number] [place] [address] May, Acute bacterial conjunctivitis of left eye H10.32 [facility] [id number] [place] [address] Jan, Encounter for immunization Z23 [facility] [id number] [place] [address] Jun, [facility] [id number] [place] [address] Jun, Irregular bleeding N92.6 [facility] [id number] [place] [address] May, Well woman exam with routine gynecological exam Z01.419 and Irregular bleeding N92.6 [place] [address] [address] May, Anxiety state, unspecified F41.1 and Depressive disorder, not elsewhere classified F32.9 [facility] [address] [address] Mar, Anxiety F41.9 and Irregular bleeding N92.6 [facility] [id number] [place] [address] Mar, [facility] [id number] [place] [address] Mar, Encounter for immunization Z23 [facility] [id number] [place] [address] Sep, Acute bacterial conjunctivitis of right eye H10.31 [facility] [id number] [place] [address] Mar, Sore throat J02.9 [facility] [address] [place] [id number] [place] [address] 14 Jul, 2014 [facility] [address] [place] [id number] [place] [address] 13 Jul, 2014 [facility] [address] [address] Mar, [facility] [place] [facility] [address] [id number] [place] [address] Mar, [facility] [place] [facility] [address] [id number] [place] [address] Jul, [facility] [place] [facility] [address] [id number] [place] [address] Jul, [facility] [place] [facility] [address] [id number] [place] [address] Jul, [facility] [place] [facility] [address] [id number] [place] [address] Jul, [facility] [place] [facility] [address] [id number] [place] [address] Jul, [facility] [place] [facility] [address] [id number] [place] [address] Jul, [facility] [place] [facility] [address] [id number] [place] [address] Jul, [facility] [place] [facility] [address] [id number] [place] [address] Jun, [facility] [place] [facility] [address] [id number] [place] [address] Jun, [facility] [place] [facility] [address] [id number] [place] [address] Jun, [facility] [place] [facility] [address] [id number] [place] [address] Jun, [facility] [place] [facility] [address] [id number] [place] [address] Jun, [facility] [place] [facility] [address] [id number] [place] [address] Jun, [facility] [place] [facility] [address] [id number] [place] [address] Nov, [facility] [place] [facility] [address] [id number] [place] [address] Nov, [facility] [place] [facility] [address] [id number] [place] [address] Oct, [facility] [place] [facility] [address] [id number] [place] [address] Sep, [facility] [place] [facility] [address] [id number] [place] [address] Sep, [facility] [place] [facility] [address] [id number] [place] [address] Jul, [facility] [place] [facility] [address] [id number] [place] [address] Mar, [facility] [place] [facility] [address] [id number] [place] [address] Mar, [facility] [place] [facility] [address] [id number] [place] [address] Mar, [facility] [place] [facility] [address] [id number] [place] [address] Mar, [facility] [place] [facility] [address] [id number] [place] [address] Jan, [facility] [place] [facility] [address] [id number] [place] [address] 24 Jan, 2012 [facility] [place] [facility] [address] [id number] [place] [address] Jan, [facility] [place] [facility] [address] [id number] [place] [address] Jan, [facility] [place] [facility] [address] [id number] [place] [address] Jan, [facility] [place] [facility] [address] [id number] [place] [address] Jan, [facility] [place] [facility] [address] [id number] [place] [address] Jan, [facility] [place] [facility] [address] [id number] [place] [address] 29 Dec, 2011 [facility] [place] [facility] [address] [id number] [place] [address] 28 Dec, 2011 [facility] [place] [facility] [address] [id number] [place] [address] 27 Dec, 2011 [facility] [place] [facility] [address] [id number] [place] [address] 12 Dec, 2011 [facility] [place] [facility] [address] [id number] [place] [address] Nov, [facility] [place] [facility] [address] [id number] [place] [address] Nov, [facility] [place] [facility] [address] [id number] [place] [address] Nov, [facility] [place] [facility] [address] [id number] [place] [address] Nov, [facility] [place] [facility] [address] [id number] [place] [address] Nov, [facility] [place] [facility] [address] [id number] [place] [address] Oct, [facility] [place] [facility] [address] [id number] [place] [address] Oct, [facility] [place] [facility] [address] [id number], [place] [address] Sep, [facility] [place] [facility] [address] [id number] [place] [address] Sep, [facility] [place] [facility] [address] [id number] [place] [address] Sep, [facility] [place] [facility] [address] [id number] [place] [address] Sep, [facility] [place] [facility] [address] [id number] [place] [address] 11 Sep, 2011 [facility] [address] [id number] [place] [address] 10 Sep, 2011 [facility] [address] [id number] [place] [address] 07 Sep, 2011 [facility] [address] [id number] [place] [address] August, [facility] [address] [id number] [place] [address] August, [facility] [address] [id number] [place] [address] Jun, [facility] [address] [id number] [place] [address] Jun, [facility] [address] [id number] [place] [address] Jun, [facility] [address] [id number] [place] [address] Jun, [facility] [address] [id number] [place] [address] May, [facility] [address] [id number] [place] [address] May, [facility] [address] [id number] [place] [address] May, [facility] [address] [id number] [place] [address] 14 Mar, 2009 [facility] [address] [id number] [place] [address] 27 Jan, 2009 [facility] [place] [facility] [address] [id number] [place] [address] 10 Sep, 2008 [facility] [address] [id number] [place] [address] August, [facility] [address] [id number] [address] Jul, [facility] [address], [place] [address] Jun, [facility] [address], [place] [address] Jun, [facility] [id number] [place] [address] May, [facility] [id number] [address] Mar, [facility] [id number] [place] [id number] 16 Mar, 2008 [facility] [id number] [address] 13 Mar, 2008 [facility] [address] [place] [address] 13 Mar, 2008 IMMUNIZATIONS No Known Immunizations SOCIAL HISTORY Never Assessed REASON FOR VISIT EMR-[facility] PLAN OF CARE VITAL SIGNS MEDICATIONS Unknown Medications RESULTS No Results PROCEDURES No Known procedures INSTRUCTIONS MEDICATIONS ADMINISTERED No Known Medications MEDICAL (GENERAL) HISTORY Type Description Date Surgical History No know Surgical history Hospitalization History childbirth only
--- OUTSIDE RECORDS SUMMARY | 2018-09-27 06:23 | XMS REPORT ---
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 39505670 Problem Anxiety F41.9 Active 64260512 ALLERGIES No Information ENCOUNTERS Encounter Location Date Diagnosis [place] [address] [address] Jun, [facility] [address] [address] Jun, Strep throat J02.0 and Sore throat J02.9 [facility] [address] [place] [id number] [place] [address] Jun, [facility] [address] [address] Jun, Acute nasopharyngitis J00 and Sore throat J02.9 [place] [address] [place] [id number] [place] [address] Jun, [facility] [address] [place] [id number] [place] [address] Jun, Irregular bleeding N92.6 and Dysfunctional uterine bleeding N93.8 [facility] [address] [address] Jun, [facility] [address] [place] [id number] [place] [address] May, [facility] [address] [place] [address] [id number] [place] [address] May, Acute bacterial conjunctivitis of left eye H10.32 [facility] [address] [place] [id number] [place] [address] Jan, Encounter for immunization Z23 [facility] [address] [id number] [place] [address] Jun, [facility] [address] [id number] [place] [address] Jun, Irregular bleeding N92.6 [facility] [address] [place] [address] [id number] [place] [address] May, Well woman exam with routine gynecological exam Z01.419 and Irregular bleeding N92.6 [place] [address] [address] May, Anxiety state, unspecified F41.1 and Depressive disorder, not elsewhere classified F32.9 [facility] [address] [address] Mar, Anxiety F41.9 and Irregular bleeding N92.6 [facility] [address] [place] [id number] [place] [address] Mar, [facility] [address] [place] [id number] [place] [address] Mar, Encounter for immunization Z23 [facility] [id number] [place] [address] Sep, Acute bacterial conjunctivitis of right eye H10.31 [facility] [address] [place] [id number] [place] [address] Mar, Sore throat J02.9 [facility] [address] [place] [id number] [place] [address] 14 Jul, 2014 [facility] [address] [place] [id number] [place] [address] 13 Jul, 2014 [facility] [address] [address] Mar, [facility] [place] [facility] [address] [id number] [place] [address] Mar, [facility] [place] [facility] [address] [id number] [place] [address] Jul, [facility] [place] [facility] [address] [id number] [place] [address] Jul, [facility] [place] [facility] [address] [id number] [place] [address] Jul, [facility] [place] [facility] [address] [id number] [place] [address] Jul, [facility] [place] [facility] [address] [id number] [place] [address] Jul, [facility] [place] [facility] [address] [id number] [place] [address] Jul, [facility] [place] [facility] [address] [id number] [place] [address] Jul, [facility] [place] [facility] [address] [id number] [place] [address] Jun, [facility] [place] [facility] [address] [id number] [place] [address] Jun, [facility] [place] [facility] [address] [id number] [place] [address] Jun, [facility] [place] [facility] [address] [id number] [place] [address] Jun, [facility] [place] [facility] [address] [id number] [place] [address] Jun, [facility] [place] [facility] [address] [id number] [place] [address] Jun, [facility] [place] [facility] [address] [id number] [place] [address] Nov, [facility] [place] [facility] [address] [id number] [place] [address] Nov, [facility] [place] [facility] [address] [id number] [place] [address] Oct, [facility] [place] [facility] [address] [id number] [place] [address] Sep, [facility] [place] [facility] [address] [id number] [place] [address] Sep, [facility] [place] [facility] [address] [id number] [place] [address] Jul, [facility] [place] [facility] [address] [id number] [place] [address] Mar, [facility] [place] [facility] [address] [id number] [place] [address] Mar, [facility] [place] [facility] [address] [id number] [place] [address] Mar, [facility] [place] [facility] [address] [id number] [place] [address] Mar, [facility] [place] [facility] [address] [id number] [place] [address] Jan, [facility] [place] [facility] [address] [id number] [place] [address] 24 Jan, 2012 [facility] [place] [facility] [address] [id number] [place] [address] Jan, [facility] [place] [facility] [address] [id number] [place] [address] Jan, [facility] [place] [facility] [address] [id number] [place] [address] Jan, [facility] [place] [facility] [address] [id number] [place] [address] Jan, [facility] [place] [facility] [address] [id number] [place] [address] Jan, [facility] [place] [facility] [address] [id number] [place] [address] 29 Dec, 2011 [facility] [place] [facility] [address] [id number] [place] [address] 28 Dec, 2011 [facility] [place] [facility] [address] [id number] [place] [address] 27 Dec, 2011 [facility] [place] [facility] [address] [id number] [place] [address] 12 Dec, 2011 [facility] [place] [facility] [address] [id number] [place] [address] Nov, [facility] [place] [facility] [address] [id number] [place] [address] Nov, [facility] [place] [facility] [address] [id number] [place] [address] Nov, [facility] [place] [facility] [address] [id number] [place] [address] Nov, [facility] [place] [facility] [address] [id number] [place] [address] Nov, [facility] [place] [facility] [address] [id number] [place] [address] Oct, [facility] [place] [facility] [address] [id number] [place] [address] Oct, [facility] [place] [facility] [address] [id number] [address] Sep, [facility] [place] [facility] [address] [id number] [place] [address] Sep, [facility] [place] [facility] [address] [id number] [place] [address] Sep, [facility] [place] [facility] [address] [id number] [place] [address] Sep, [facility] [place] [facility] [address] [id number] [place] [address] 11 Sep, 2011 [facility] [address] [id number] [place] [address] 10 Sep, 2011 [facility] [address] [id number] [place] [address] 07 Sep, 2011 [facility] [address] [id number] [place] [address] August, [facility] [address] [id number] [place] [address] August, [facility] [address] [id number] [place] [address] Jun, [facility] [address] [id number] [place] [address] Jun, [facility] [address] [id number] [place] [address] Jun, [facility] [address] [id number] [place] [address] Jun, [facility] [address] [id number] [place] [address] May, [facility] [address] [id number] [place] [address] May, [facility] [address] [id number] [place] [address] May, [facility] [address] [id number] [place] [address] 14 Mar, 2009 [facility] [address] [id number] [place] [address] 27 Jan, 2009 [facility] [place] [facility] [address] [id number] [place] [address] 10 Sep, 2008 [facility] [address] [id number] [place] [address] August, [facility] [address] [id number] [address] Jul, [facility] [address] [address] Jun, [facility] [address] [address] Jun, [facility] [address] [place] [id number] [place] [address] May, [facility] [address] [address] Mar, [facility] [id number] [place] [address] 16 Mar, 2008 [facility] [address] [address] 13 Mar, 2008 [facility] [address] [address] 13 Mar, 2008 IMMUNIZATIONS No Known Immunizations SOCIAL HISTORY Never Assessed REASON FOR VISIT [place] [place] VITAL SIGNS MEDICATIONS Unknown Medications RESULTS No Results PROCEDURES No Known procedures INSTRUCTIONS MEDICATIONS ADMINISTERED No Known Medications MEDICAL (GENERAL) HISTORY Type Description Date Surgical History No know Surgical history Hospitalization History childbirth only
--- OUTSIDE RECORDS SUMMARY | 2018-09-27 06:23 | XMS REPORT ---
Author Author Migration, Doctor Organization [facility] Address Unknown Phone Unavailable Care Team Providers Care General Neurologist Name Role Phone Migration, Doctor Unavailable Unavailable PROBLEMS Type Condition ICD9-CM Code [id number] Code Onset Dates Condition Status SNOMED Code Problem Depressive disorder, not elsewhere classified F32.9 Active 01798964 Problem Dysfunctional uterine bleeding N93.8 Active 37170928 Problem Anxiety F41.9 Active 50291365 ALLERGIES No Information ENCOUNTERS Encounter Location Date Diagnosis [place] [address] [address] Jun, [facility] [address] [address] Jun, Strep throat J02.0 and Sore throat J02.9 [facility] [address] [place] [id number] [place] [address] Jun, [facility] [address] [address] Jun, Acute nasopharyngitis J00 and Sore throat J02.9 [place] [address] [place] [id number] [place] [address] Jun, [facility] [address] [address] Jun, Irregular bleeding N92.6 and Dysfunctional uterine bleeding N93.8 [facility] [address] [address] Jun, [facility] [address] [place] [id number] [place] [address] May, [facility] [address] [place] [id number] [place] [address] May, Acute bacterial conjunctivitis of left eye H10.32 [facility] [address] [place] [id number] [place] [address] Jan, Encounter for immunization Z23 [facility] [address] [place] [id number] [place] [address] Jun, [facility] [address] [place] [id number] [place] [address] Jun, Irregular bleeding N92.6 [facility] [address] [place] [id number] [place] [address] May, Well woman exam with routine gynecological exam Z01.419 and Irregular bleeding N92.6 [place] [address] [address] May, Anxiety state, unspecified F41.1 and Depressive disorder, not elsewhere classified F32.9 [facility] [address] [address] Mar, Anxiety F41.9 and Irregular bleeding N92.6 [facility] [address] [place] [id number] [place] [address] Mar, [facility] [address] [place] [id number] [place] [address] Mar, Encounter for immunization Z23 [facility] [id number] [place] [address] Sep, Acute bacterial conjunctivitis of right eye H10.31 [facility] [address] [place] [id number] [place] [address] Mar, Sore throat J02.9 [facility] [address] [place] [id number] [place] [address] 14 Jul, 2014 [facility] [address] [place] [id number] [place] [address] 13 Jul, 2014 [facility] [address] [address] Mar, [facility] [place] [facility] [address] [id number] [place] [address] Mar, [facility] [place] [facility] [address] [id number] [place] [address] Jul, [facility] [place] [facility] [address] [id number] [place] [address] Jul, [facility] [place] [facility] [address] [id number] [place] [address] Jul, [facility] [place] [facility] [address] [id number] [place] [address] Jul, [facility] [place] [facility] [address] [id number] [place] [address] Jul, [facility] [place] [facility] [address] [id number] [place] [address] Jul, [facility] [place] [facility] [address] [id number] [place] [address] Jul, [facility] [place] [facility] [address] [id number] [place] [address] Jun, [facility] [place] [facility] [address] [id number] [place] [address] Jun, [facility] [place] [facility] [address] [id number] [place] [address] Jun, [facility] [place] [facility] [address] [id number] [place] [address] Jun, [facility] [place] [facility] [address] [id number] [place] [address] Jun, [facility] [place] [facility] [address] [id number] [place] [address] Jun, [facility] [place] [facility] [address] [id number] [place] [address] Nov, [facility] [place] [facility] [address] [id number] [place] [address] Nov, [facility] [place] [facility] [address] [id number] [place] [address] Oct, [facility] [place] [facility] [address] [id number] [place] [address] Sep, [facility] [place] [facility] [address] [id number] [place] [address] Sep, [facility] [place] [facility] [address] [id number] [place] [address] Jul, [facility] [place] [facility] [address] [id number] [place] [address] Mar, [facility] [place] [facility] [address] [id number] [place] [address] Mar, [facility] [place] [facility] [address] [id number] [place] [address] Mar, [facility] [place] [facility] [address] [id number] [place] [address] Mar, [facility] [place] [facility] [address] [id number] [place] [address] Jan, [facility] [place] [facility] [address] [id number] [place] [address] 24 Jan, 2012 [facility] [place] [facility] [address] [id number] [place] [address] Jan, [facility] [place] [facility] [address] [id number] [place] [address] Jan, [facility] [place] [facility] [address] [id number] [place] [address] Jan, [facility] [place] [facility] [address] [id number] [place] [address] Jan, [facility] [place] [facility] [address] [id number] [place] [address] Jan, [facility] [place] [facility] [address] [id number] [place] [address] 29 Dec, 2011 [facility] [place] [facility] [address] [id number] [place] [address] 28 Dec, 2011 [facility] [place] [facility] [address] [id number] [place] [address] 27 Dec, 2011 [facility] [place] [facility] [address] [id number] [place] [address] 12 Dec, 2011 [facility] [place] [facility] [address] [id number] [place] [address] Nov, [facility] [place] [facility] [address] [id number] [place] [address] Nov, [facility] [place] [facility] [address] [id number] [place] [address] Nov, [facility] [place] [facility] [address] [id number] [place] [address] Nov, [facility] [place] [facility] [address] [id number] [place] [address] Nov, [facility] [place] [facility] [address] [id number] [place] [address] Oct, [facility] [place] [facility] [address] [id number] [place] [address] Oct, [facility] [place] [facility] [address] [id number] [address] Sep, [facility] [place] [facility] [address] [id number] [place] [address] Sep, [facility] [place] [facility] [address] [id number] [place] [address] Sep, [facility] [place] [facility] [address] [id number] [place] [address] Sep, [facility] [place] [facility] [address] [id number] [place] [address] 11 Sep, 2011 [facility] [address] [id number] [place] [address] 10 Sep, 2011 [facility] [address] [id number] [place] [address] 07 Sep, 2011 [facility] [address] [id number] [place] [address] August, [facility] [address] [id number] [place] [address] August, [facility] [address] [id number] [place] [address] Jun, [facility] [address] [id number] [place] [address] Jun, [facility] [address] [id number] [place] [address] Jun, [facility] [address] [id number] [place] [address] Jun, [facility] [address] [id number] [place] [address] May, [facility] [address] [id number] [place] [address] May, [facility] [address] [id number] [place] [address] May, [facility] [address] [id number] [place] [address] 14 Mar, 2009 [facility] [address] [id number] [place] [address] 27 Jan, 2009 [facility] [place] [facility] [address] [id number] [place] [address] 10 Sep, 2008 [facility] [address] [id number] [place] [address] August, [facility] [id number] [address] Jul, [facility] [address], [place] [address] Jun, [facility] [address], [place] [address] Jun, [facility] [id number] [place] [address] May, [facility] [address], [place] [address] Mar, [facility] [id number] [place] [id number] 16 Mar, 2008 [facility] [id number] [address] 13 Mar, 2008 [facility] [id number] [place] [address] 13 Mar, 2008 IMMUNIZATIONS No Known Immunizations SOCIAL HISTORY Never Assessed REASON FOR VISIT [facility]MR-[facility] PLAN OF CARE VITAL SIGNS MEDICATIONS Unknown Medications RESULTS No Results PROCEDURES No Known procedures INSTRUCTIONS MEDICATIONS ADMINISTERED No Known Medications MEDICAL (GENERAL) HISTORY Type Description Date Surgical History No know Surgical history Hospitalization History childbirth only
--- OUTSIDE RECORDS SUMMARY | 2018-09-27 06:24 | XMS REPORT ---
Author Author LINNETTE HALEY Organization [facility] Address [address] [place] [address] Care Team Providers Care Credit Interviewer Name Role Phone LINNETTE HALEY Unavailable PROBLEMS Type Condition ICD9-CM Code QGL27-VN Code Onset Dates Condition Status SNOMED Code Problem Depressive disorder, not elsewhere classified F32.9 Active 20408623 Problem Anxiety state, unspecified F41.1 Active 264846510 Problem Irregular bleeding N92.6 Active 72785409 Problem Anxiety F41.9 Active 61719946 ALLERGIES No Information ENCOUNTERS Encounter Location Date Diagnosis [facility] [address] [address] Jun, [facility] [address] [address] Jun, Irregular bleeding N92.6 [facility] [address] [address] May, Well woman exam with routine gynecological exam Z01.419 and Irregular bleeding N92.6 [facility] [address] [address] May, Anxiety state, unspecified F41.1 and Depressive disorder, not elsewhere classified F32.9 [facility] [address] [address] Mar, Anxiety F41.9 and Irregular bleeding N92.6 [facility] [address] [address] Mar, [facility] [address] [address] Mar, Encounter for immunization Z23 [facility] [address] [place] [address] Sep, Acute bacterial conjunctivitis of right eye H10.[address] [facility] [address] [place] [address] Mar, Sore throat J02.9 [facility] [address] [id number] [place] [address] Jul, [facility] [address] [facility] [id number] [place] [address] Jul, [facility] [address] [facility] [id number] [place] [address] Mar, [facility] [address] [address] Mar, [facility] [address] [place] [address] Jul, [facility] [address] [address] Jul, [facility] [address] [id number] [place] [address] Jul, [facility] [address] [address] Jul, [facility] [address] [address] Jul, [facility] [address] [id number] [address] Jul, [facility] [address] [id number] [address] Jul, [facility] [address] [address] Jun, [facility] [address] [id number] [address] Jun, [facility] [id number] [place] [address] 12 Jun, 2013 [facility] [address] [id number] [place] [address] Jun, [facility] [place] [facility] [address] [id number] [place] [address] Jun, [facility] [address] [id number] [place] [address] Jun, [facility] [place] [facility] [address] [id number] [place] [address] Nov, [facility] [place] [facility] [address] [id number] [place] [address] Nov, [facility] [place] [facility] [address] [id number] [place] [address] Oct, [facility] [place] [facility] [address] [id number] [place] [address] Sep, [facility] [address] [id number] [place] [address] Sep, [facility] [place] [facility] [address] [facility] [id number] [place] [address] Jul, [facility] [address] [facility] [id number] [place] [address] Mar, [facility] [place] [facility] [address] [id number] [place] [address] Mar, [facility] [place] [facility] [address] [id number] [place] [address] Mar, [facility] [place] [facility] [address] [id number] [place] [address] Mar, [facility] [place] [facility] [address] [id number] [place] [address] Jan, [facility] [place] [facility] [address] [id number] [place] [address] Jan, [facility] [place] [facility] [address] [id number] [place] [address] 17 Jan, 2012 [facility] [place] [facility] [address] [id number] [place] [address] 17 Jan, 2012 [facility] [place] [facility] [address] [id number] [place] [address] Jan, [facility] [place] [facility] [address] [id number] [place] [address] Jan, [facility] [place] [facility] [address] [id number] [place] [address] 04 Jan, 2012 [facility] [place] [facility] [address] [id number] [place] [address] 29 Dec, 2011 [facility] [place] [facility] [address] [id number] [place] [address] 28 Dec, 2011 [facility] [place] [facility] [address] [id number] [place] [address] 27 Dec, 2011 [facility] [place] [facility] [address] [id number] [place] [address] 12 Dec, 2011 [facility] [place] [facility] [address] [id number], [place] [address] 30 Nov, 2011 [facility] [place] [facility] [address] [id number], [place] [address] Nov, [facility] [place] [facility] [address] [id number], [place] [address] Nov, [facility] [place] [facility] [address] [id number] [place] [address] Nov, [facility] [place] [facility] [address] [id number], [place] [address] Nov, [facility] [place] [facility] [address] [id number], [place] [address] Oct, [facility] [place] [facility] [address] [id number], [place] [address] 09 Oct, 2011 [facility] [place] [facility] [address] [id number] [place] [address] 20 Sep, 2011 [facility] [place] [facility] [address] [id number] [place] [address] 15 Sep, 2011 [facility] [place] [facility] [address] [id number] [place] [address] 13 Sep, 2011 [facility] [place] [facility] [address] [id number] [place] [address] 12 Sep, 2011 [facility] [place] [facility] [address] [id number] [place] [address] 11 Sep, 2011 [facility] [place] [facility] [address] [id number] [place] [address] 10 Sep, 2011 [facility] [place] [facility] [address] [id number] [place] [address] 07 Sep, 2011 [facility] [place] [facility] [address] [id number] [place] [address] August, [facility] [place] [facility] [address] [id number] [place] [address] 24 Aug, 2011 [facility] [place] [facility] [address] [facility] [id number] [place] [address] 23 Jun, 2011 [facility] [place] [facility] [address] [id number] [place] [address] Jun, [facility] [place] [facility] [address] [id number] [place] [address] Jun, [facility] [place] [facility] [address] [id number] [place] [address] Jun, [facility] [place] [facility] [address] [id number] [place] [address] 30 May, 2011 [facility] [place] [facility] [address] [id number] [place] [address] May, [facility] [place] [facility] [address], [place] [address] May, [facility] [address], [place] [address] Mar, [facility] [address], [place] [address] Jan, [facility] [address], [place] [address] Sep, [facility] [address] [address] August, [facility] [id number] [place] [address] Jul, [facility] [address], [place] [address] Jun, [facility] [address], [place] [address] Jun, [facility] [address], [place] [address] May, [facility] [address], [place] [address] Mar, [facility] [address], [place] [address] 16 Mar, 2008 [facility] [address], [place] [address] Mar, [facility] [id number] [address] Mar, IMMUNIZATIONS No Known Immunizations SOCIAL HISTORY Never Assessed REASON FOR VISIT Anxiety and depression. PLAN OF CARE Activity Details Follow Up 1 Week Reason:anxiey & depression VITAL SIGNS MEDICATIONS Medication Instructions Dosage Frequency Start Date End Date Duration Status Multivitamin Women - Active RESULTS No Results PROCEDURES Procedure Date Ordered Result Body Site Psychotherapy, patient &/family, 45 minutes, established patient May 11, 2017 INSTRUCTIONS MEDICATIONS ADMINISTERED No Known Medications MEDICAL (GENERAL) HISTORY Type Description Date Hospitalization History childbirth only
--- OUTSIDE RECORDS SUMMARY | 2018-09-27 06:24 | XMS REPORT ---
Author Author GITA SULTANA Organization [facility] Address [address] [place] [address] Care Team Providers Care Curb Hop Name Role Phone GITA SULTANA Unavailable PROBLEMS Type Condition ICD9-CM Code QCT91-MS Code Onset Dates Condition Status SNOMED Code Problem Depressive disorder, not elsewhere classified F32.9 Active 89311916 Problem Anxiety state, unspecified F41.1 Active 732952361 Problem Irregular bleeding N92.6 Active 04664406 Problem Anxiety F41.9 Active 72859882 ALLERGIES No Known Allergies ENCOUNTERS Encounter Location Date Diagnosis [facility] [address] [address] Jun, [facility] [id number] [place] [address] Jun, Irregular bleeding N92.6 [facility] [address] [address] May, Well woman exam with routine gynecological exam Z01.419 and Irregular bleeding N92.6 [facility] [id number] [place] [address] May, Anxiety state, unspecified F41.1 and Depressive disorder, not elsewhere classified F32.9 [facility] [id number] [place] [address] Mar, Anxiety F41.9 and Irregular bleeding N92.6 [facility] [address] [address] Mar, [facility] [id number] [place] [address] Mar, Encounter for immunization Z23 [facility] [id number] [address] Sep, Acute bacterial conjunctivitis of right eye H10.31 [facility] [address] [place] [address] Mar, Sore throat J02.9 [facility] [address] [id number] [place] [address] Jul, [facility] [address] [facility] [id number] [address] Jul, [facility] [address] [id number] [place] [address] Mar, [facility] [address], [place] [address] Mar, [facility] [address] [place] [address] Jul, [facility] [address], [place] [address] Jul, [facility] [address] [id number] [address] Jul, [facility] [address] [id number] [address] Jul, [facility] [address], [place] [address] Jul, [facility] [address] [facility] [id number], [place] [address] Jul, [facility] [address] [id number] [address] Jul, [facility] [address] [id number] [address] Jun, [facility] [address] [id number] [address] Jun, [facility] [address] [place] [address] Jun, [facility] [place] [facility] [address] [id number] [place] [address] Jun, [facility] [place] [facility] [address] [id number] [place] [address] Jun, [facility] [place] [facility] [address] [id number] [place] [address] Jun, [facility] [place] [facility] [address] [id number] [place] [address] Nov, [facility] [place] [facility] [address] [id number] [place] [address] Nov, [facility] [place] [facility] [address] [id number] [place] [address] Oct, [facility] [place] [facility] [address] [id number] [place] [address] Sep, [facility] [place] [facility] [address] [id number] [place] [address] Sep, [facility] [place] [facility] [address] [id number] [place] [address] Jul, [facility] [place] [facility] [address] [facility] [id number] [place] [address] Mar, [facility] [place] [facility] [address] [id number] [place] [address] Mar, [facility] [place] [facility] [address] [id number] [place] [address] Mar, [facility] [place] [facility] [address] [id number] [place] [address] Mar, [facility] [place] [facility] [address] [id number] [place] [address] Jan, [facility] [place] [facility] [address] [id number] [place] [address] 24 Jan, 2012 [facility] [place] [facility] [address] [id number] [place] [address] 17 Jan, 2012 [facility] [place] [facility] [address] [id number] [place] [address] 17 Jan, 2012 [facility] [place] [facility] [address] [id number] [place] [address] Jan, [facility] [place] [facility] [address] [id number] [place] [address] Jan, [facility] [place] [facility] [address] [id number] [place] [address] 04 Jan, 2012 [facility] [place] [facility] [address] [id number] [place] [address] 29 Dec, 2011 [facility] [place] [facility] [address] [id number] [place] [address] 28 Dec, 2011 [facility] [place] [facility] [address] [id number] [place] [address] 27 Dec, 2011 [facility] [place] [facility] [address] [id number] [place] [address] 12 Dec, 2011 [facility] [place] [facility] [address] [id number] [place] [address] 30 Nov, 2011 [facility] [place] [facility] [address] [id number], [place] [address] Nov, [facility] [place] [facility] [address] [id number], [place] [address] Nov, [facility] [place] [facility] [address] [id number] [place] [address] Nov, [facility] [place] [facility] [address] [id number] [place] [address] 08 Nov, 2011 [facility] [place] [facility] [address] [id number] [place] [address] Oct, [facility] [place] [facility] [address] [id number] [place] [address] 09 Oct, 2011 [facility] [place] [facility] [address] [id number] [place] [address] 20 Sep, 2011 [facility] [place] [facility] [address] [id number] [place] [address] 15 Sep, 2011 [facility] [place] [facility] [address] [id number] [place] [address] 13 Sep, 2011 [facility] [place] [facility] [address] [id number] [place] [address] 12 Sep, 2011 [facility] [place] [facility] [address] [id number] [place] [address] 11 Sep, 2011 [facility] [place] [facility] [address] [id number] [place] [address] 10 Sep, 2011 [facility] [place] [facility] [address] [id number] [place] [address] 07 Sep, 2011 [facility] [place] [facility] [address] [id number] [place] [address] August, [facility] [place] [facility] [address] [id number] [place] [address] 24 Aug, 2011 [facility] [place] [facility] [address] [id number] [place] [address] Jun, [facility] [place] [facility] [address] [id number] [place] [address] 19 Jun, 2011 [facility] [place] [facility] [address] [id number] [place] [address] 13 Jun, 2011 [facility] [place] [facility] [address] [id number] [place] [address] Jun, [facility] [place] [facility] [address] [id number] [place] [address] May, [facility] [place] [facility] [address] [id number] [place] [address] May, [facility] [address] [address] May, [facility] [address], [place] [address] 14 Mar, 2009 [facility] [address], [place] [address] Jan, [facility] [id number] [place] [address] Sep, [facility] [address], [place] [address] August, [facility] [id number] [place] [address] Jul, [facility] [address], [place] [address] Jun, [facility] [address], [place] [address] Jun, [facility] [address], [place] [address] May, [facility] [address], [place] [address] Mar, [facility] [address], [place] [address] 16 Mar, 2008 [facility] [address], [place] [address] Mar, [facility] [address] [id number] [address] Mar, IMMUNIZATIONS No Known Immunizations SOCIAL HISTORY Never Assessed REASON FOR VISIT PMH obtained. Arlen WILLSON PLAN OF CARE VITAL SIGNS MEDICATIONS Medication Instructions Dosage Frequency Start Date End Date Duration Status TobraDex 0.3-0.1 % Ophthalmic every 6 hrs 1 drop into affected eye 6h Sep, 5 days Not-Taking RESULTS No Results PROCEDURES No Known procedures INSTRUCTIONS MEDICATIONS ADMINISTERED No Known Medications MEDICAL (GENERAL) HISTORY Type Description Date Hospitalization History childbirth only
--- OUTSIDE RECORDS SUMMARY | 2018-09-27 06:24 | XMS REPORT ---
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 619263943 Problem Acute bronchitis 466.0 Active 79013919 Problem Irregular menstrual cycle 626.4 Active 88079787 Problem Allergic rhinitis, cause unspecified 477.9 Active 15185576 Problem Acute sinusitis, unspecified 461.9 Active 20169694 Problem Screening for malignant neoplasm of the cervix V76.2 Active 972754658 Problem General counseling for prescription of oral contraceptives V25.01 Active 011478648139314 Problem Routine follow-up V24.2 Active 852443915 Problem Screening examination for venereal disease V74.5 Active 140611503 Problem Screening examination for pulmonary tuberculosis V74.1 Active 537594307 Problem Other general counseling and advice for contraceptive management V25.09 Active 039510128 Problem Routine general medical examination at health care facility V70.0 Active 348517514 ALLERGIES No Known Allergies SOCIAL HISTORY Never Assessed PLAN OF CARE Activity Details Follow Up prn Reason: VITAL SIGNS Height 62 in 2016-10-01 Weight 169.8 lbs 2016-10-01 Temperature 98.12 degrees Fahrenheit 2016-10-01 Heart Rate 80 bpm 2016-10-01 Respiratory Rate 20 2016-10-01 BMI 31.05 kg/m2 2016-10-01 Blood pressure systolic 126 mmHg 2016-10-01 Blood pressure diastolic 90 mmHg 2016-10-01 MEDICATIONS Medication Instructions Dosage Frequency Start Date End Date Duration Status TobraDex 0.3-0.1 % Ophthalmic every 6 hrs 1 drop into affected eye 6h Sep, 5 days Active RESULTS No Results PROCEDURES No Known procedures IMMUNIZATIONS No Known Immunizations MEDICAL (GENERAL) HISTORY Type Description Date Hospitalization History childbirth only
--- OUTSIDE RECORDS SUMMARY | 2018-09-27 06:24 | XMS REPORT ---
Author Author GITA SULTANA Organization [facility] Address [address] [place] [address] Care Team Providers Care Executive Meeting Manager Name Role Phone GITA SULTANA Unavailable PROBLEMS Type Condition ICD9-CM Code [id number] Code Onset Dates Condition Status SNOMED Code Problem Depressive disorder, not elsewhere classified F32.9 Active 38242416 Problem Anxiety state, unspecified F41.1 Active 085873870 Problem Irregular bleeding N92.6 Active 57517803 Problem Anxiety F41.9 Active 92771815 ALLERGIES No Information ENCOUNTERS Encounter Location Date Diagnosis [facility] [address] [address] Jun, [facility] [address] [address] Jun, Irregular bleeding N92.6 [facility] [address] [address] May, Well woman exam with routine gynecological exam Z01.419 and Irregular bleeding N92.6 [facility] [id number] [place] [address] May, Anxiety state, unspecified F41.1 and Depressive disorder, not elsewhere classified F32.9 [facility] [id number] [place] [address] Mar, Anxiety F41.9 and Irregular bleeding N92.6 [facility] [address] [address] Mar, [facility] [id number] [place] [address] Mar, Encounter for immunization Z23 [facility] [address] [place] [address] Sep, Acute bacterial conjunctivitis of right eye H10.31 [facility] [id number] [place] [address] Mar, Sore throat J02.9 [facility] [id number] [place] [address] Jul, [facility] [address] [facility] [id number] [address] Jul, [facility] [id number] [place] [address] Mar, [facility] [id number] [address] Mar, [facility] [id number] [place] [address] Jul, [facility] [id number] [address] Jul, [facility] [id number] [place] [address] Jul, [facility] [id number] [address] Jul, [facility] [id number] [address] Jul, [facility] [id number] [address] Jul, [facility] [id number] [address] Jul, [facility] [id number] [address] Jun, [facility] [id number] [address] Jun, [facility] [id number] [place] [address] Jun, [facility] [place] [facility] [address] [id number] [place] [address] Jun, [facility] [place] [facility] [address] [id number] [place] [address] Jun, [facility] [place] [facility] [address] [id number] [place] [address] Jun, [facility] [place] [facility] [address] [id number] [place] [address] Nov, [facility] [place] [facility] [address] [id number] [place] [address] Nov, [facility] [place] [facility] [address] [id number] [place] [address] Oct, [facility] [place] [facility] [address] [id number] [place] [address] Sep, [facility] [place] [facility] [address] [id number] [place] [address] Sep, [facility] [place] [facility] [address] [id number] [place] [address] Jul, [facility] [place] [facility] [address] [facility] [id number] [place] [address] Mar, [facility] [place] [facility] [address] [id number] [place] [address] Mar, [facility] [place] [facility] [address] [id number] [place] [address] Mar, [facility] [place] [facility] [address] [id number] [place] [address] Mar, [facility] [place] [facility] [address] [id number] [place] [address] Jan, [facility] [place] [facility] [address] [id number] [place] [address] Jan, [facility] [place] [facility] [address] [id number] [place] [address] Jan, [facility] [place] [facility] [address] [id number] [place] [address] 17 Jan, 2012 [facility] [place] [facility] [address] [id number] [place] [address] Jan, [facility] [place] [facility] [address] [id number] [place] [address] Jan, [facility] [place] [facility] [address] [id number] [place] [address] 04 Jan, 2012 [facility] [place] [facility] [address] [id number] [place] [address] 29 Dec, 2011 [facility] [place] [facility] [address] [id number] [place] [address] 28 Dec, 2011 [facility] [place] [facility] [address] [id number] [place] [address] 27 Dec, 2011 [facility] [place] [facility] [address] [id number] [place] [address] 12 Dec, 2011 [facility] [place] [facility] [address] [id number] [place] [address] 30 Nov, 2011 [facility] [place] [facility] [address] [id number] [place] [address] Nov, [facility] [place] [facility] [address] [id number] [address] Nov, [facility] [place] [facility] [address] [id number] [place] [address] Nov, [facility] [place] [facility] [address] [id number] [place] [address] Nov, [facility] [place] [facility] [address] [id number] [place] [address] Oct, [facility] [place] [facility] [address] [id number] [place] [address] 09 Oct, 2011 [facility] [place] [facility] [address] [id number] [place] [address] 20 Sep, 2011 [facility] [place] [facility] [address] [id number] [place] [address] 15 Sep, 2011 [facility] [place] [facility] [address] [id number] [place] [address] 13 Sep, 2011 [facility] [place] [facility] [address] [id number] [place] [address] 12 Sep, 2011 [facility] [place] [facility] [address] [id number] [place] [address] 11 Sep, 2011 [facility] [place] [facility] [address] [id number] [place] [address] 10 Sep, 2011 [facility] [place] [facility] [address] [id number] [place] [address] 07 Sep, 2011 [facility] [place] [facility] [address] [id number] [place] [address] August, [facility] [place] [facility] [address] [id number] [place] [address] 24 Aug, 2011 [facility] [place] [facility] [address] [id number] [place] [address] Jun, [facility] [place] [facility] [address] [id number] [place] [address] 19 Jun, 2011 [facility] [place] [facility] [address] [id number] [place] [address] Jun, [facility] [place] [facility] [address] [id number] [place] [address] Jun, [facility] [place] [facility] [address] [id number] [place] [address] May, [facility] [place] [facility] [address] [id number] [place] [address] May, [facility] [place] [facility] [id number], [place] [address] May, [facility] [id number], [place] [address] Mar, [facility] [address] [facility] [id number], [place] [address] Jan, [facility] [id number], [place] [address] Sep, [facility] [address] [facility] [id number], [place] [address] August, [facility] [id number] [place] [address] Jul, [facility] [id number], [place] [address] Jun, [facility] [id number], [place] [address] Jun, [facility] [id number], [place] [address] May, [facility] [id number], [place] [address] Mar, [facility] [id number], [place] [address] Mar, [facility] [id number] [address] Mar, [facility] [id number] [address] Mar, IMMUNIZATIONS No Known Immunizations SOCIAL HISTORY Never Assessed REASON FOR VISIT New med PLAN OF CARE VITAL SIGNS MEDICATIONS Medication Instructions Dosage Frequency Start Date End Date Duration Status Zoloft 50 mg Orally Once a day 1/2 tablet x7 dayas and then one tablet daily 24h Jun, 30 day(s) Active RESULTS No Results PROCEDURES No Known procedures INSTRUCTIONS MEDICATIONS ADMINISTERED No Known Medications MEDICAL (GENERAL) HISTORY Type Description Date Hospitalization History childbirth only
--- OUTSIDE RECORDS SUMMARY | 2018-09-27 06:24 | XMS REPORT ---
Author Author GITA SULTANA Organization [facility] Address [address] [place] [address] Care Team Providers Care Lens Grinder Name Role Phone GITA SULTANA Unavailable PROBLEMS Type Condition ICD9-CM Code [id number] Code Onset Dates Condition Status SNOMED Code Problem Depressive disorder, not elsewhere classified F32.9 Active 70432712 Problem Anxiety state, unspecified F41.1 Active 279737697 Problem Irregular bleeding N92.6 Active 48857733 Problem Anxiety F41.9 Active 78077526 ALLERGIES No Known Allergies ENCOUNTERS Encounter Location Date Diagnosis [facility] [address] [address] Jun, [facility] [id number] [place] [address] Jun, Irregular bleeding N92.6 [facility] [address] [address] May, Well woman exam with routine gynecological exam Z01.419 and Irregular bleeding N92.6 [facility] [id number] [place] [address] May, Anxiety state, unspecified F41.1 and Depressive disorder, not elsewhere classified F32.9 [facility] [id number] [place] [address] Mar, Anxiety F41.9 and Irregular bleeding N92.6 [facility] [address] [address] Mar, [facility] [id number] [place] [address] Mar, Encounter for immunization Z23 [facility] [address] [id number] [address] Sep, Acute bacterial conjunctivitis of right eye [facility]10.31 [facility] [id number] [place] [address] Mar, Sore throat J02.9 [facility] [address] [id number] [place] [address] Jul, [facility] [address] [facility] [id number] [address] Jul, [facility] [id number] [place] [address] Mar, [facility] [id number] [address] Mar, [facility] [id number] [place] [address] Jul, [facility] [id number] [address] Jul, [facility] [id number] [address] Jul, [facility] [id number] [address] Jul, [facility] [id number] [address] Jul, [facility] [address] [facility] [id number], [place] [address] Jul, [facility] [id number] [address] Jul, [facility] [address] [id number] [address] Jun, [facility] [address] [id number] [address] Jun, [facility] [address] [place] [address] Jun, [facility] [place] [facility] [address] [id number] [place] [address] Jun, [facility] [place] [facility] [address] [id number] [place] [address] Jun, [facility] [place] [facility] [address] [id number] [place] [address] Jun, [facility] [place] [facility] [address] [id number] [place] [address] Nov, [facility] [place] [facility] [address] [id number] [place] [address] Nov, [facility] [place] [facility] [address] [id number] [place] [address] Oct, [facility] [place] [facility] [address] [id number] [place] [address] Sep, [facility] [place] [facility] [address] [id number] [place] [address] Sep, [facility] [place] [facility] [address] [id number] [place] [address] Jul, [facility] [place] [facility] [address] [facility] [id number] [place] [address] Mar, [facility] [place] [facility] [address] [id number] [place] [address] Mar, [facility] [place] [facility] [address] [id number] [place] [address] Mar, [facility] [place] [facility] [address] [id number] [place] [address] Mar, [facility] [place] [facility] [address] [id number] [place] [address] Jan, [facility] [place] [facility] [address] [id number] [place] [address] 24 Jan, 2012 [facility] [place] [facility] [address] [id number] [place] [address] 17 Jan, 2012 [facility] [place] [facility] [address] [id number] [place] [address] 17 Jan, 2012 [facility] [place] [facility] [address] [id number] [place] [address] Jan, [facility] [place] [facility] [address] [id number] [place] [address] Jan, [facility] [place] [facility] [address] [id number] [place] [address] 04 Jan, 2012 [facility] [place] [facility] [address] [id number] [place] [address] 29 Dec, 2011 [facility] [place] [facility] [address] [id number] [place] [address] 28 Dec, 2011 [facility] [place] [facility] [address] [id number] [place] [address] 27 Dec, 2011 [facility] [place] [facility] [address] [id number] [place] [address] 12 Dec, 2011 [facility] [place] [facility] [address] [id number] [place] [address] 30 Nov, 2011 [facility] [place] [facility] [address] [id number] [address] Nov, [facility] [place] [facility] [address] [id number] [address] Nov, [facility] [place] [facility] [address] [id number] [place] [address] Nov, [facility] [place] [facility] [address] [id number] [place] [address] 08 Nov, 2011 [facility] [place] [facility] [address] [id number] [place] [address] Oct, [facility] [place] [facility] [address] [id number] [place] [address] 09 Oct, 2011 [facility] [place] [facility] [address] [id number] [place] [address] 20 Sep, 2011 [facility] [place] [facility] [address] [id number] [place] [address] 15 Sep, 2011 [facility] [place] [facility] [address] [id number] [place] [address] 13 Sep, 2011 [facility] [place] [facility] [address] [id number] [place] [address] 12 Sep, 2011 [facility] [place] [facility] [address] [id number] [place] [address] 11 Sep, 2011 [facility] [place] [facility] [address] [id number] [place] [address] 10 Sep, 2011 [facility] [place] [facility] [address] [id number] [place] [address] 07 Sep, 2011 [facility] [place] [facility] [address] [id number] [place] [address] August, [facility] [place] [facility] [address] [id number] [place] [address] 24 Aug, 2011 [facility] [place] [facility] [address] [id number] [place] [address] Jun, [facility] [place] [facility] [address] [id number] [place] [address] 19 Jun, 2011 [facility] [place] [facility] [address] [id number] [place] [address] 13 Jun, 2011 [facility] [place] [facility] [address] [id number] [place] [address] Jun, [facility] [place] [facility] [address] [id number] [place] [address] May, [facility] [place] [facility] [address] [id number] [place] [address] May, [facility] [address] [address] May, [facility] [address] [address] 14 Mar, 2009 [facility] [id number] [address] Jan, [facility] [id number] [place] [address] Sep, [facility] [address] [address] August, [facility] [id number] [place] [address] Jul, [facility] [id number] [address] Jun, [facility] [id number] [address] Jun, [facility] [id number] [address] May, [facility] [address] [address] Mar, [facility] [address] [address] 16 Mar, 2008 [facility] [id number] [address] Mar, [facility] [id number] [address] Mar, IMMUNIZATIONS No Known Immunizations SOCIAL HISTORY Never Assessed REASON FOR VISIT Establish Care--[place]MIKA, --Pt has concerns with hormones. Reports increase in stress and anxiety. Having heavy periods PLAN OF CARE Activity Details Follow Up Next available for well woman Reason: VITAL SIGNS Height 62 in 2017-04-13 Weight 163.2 lbs 2017-04-13 Temperature 98.1 degrees Fahrenheit 2017-04-13 Heart Rate 70 bpm 2017-04-13 Respiratory Rate 18 2017-04-13 BMI 29.85 kg/m2 2017-04-13 Blood pressure systolic 122 mmHg 2017-04-13 Blood pressure diastolic 80 mmHg 2017-04-13 MEDICATIONS Medication Instructions Dosage Frequency Start Date End Date Duration Status Multivitamin Women - Active RESULTS No Results PROCEDURES Procedure Date Ordered Result Body Site ASSAY THYROID STIM HORMONE Apr 13, 2017 ASSAY OF FREE THYROXINE Apr 13, 2017 COMPLETE CBC W/AUTO DIFF WBC Apr 13, 2017 COMPREHEN METABOLIC PANEL Apr 13, 2017 VENIPUNCT, ROUTINE* Apr 13, 2017 INSTRUCTIONS MEDICATIONS ADMINISTERED No Known Medications MEDICAL (GENERAL) HISTORY Type Description Date Hospitalization History childbirth only
--- OUTSIDE RECORDS SUMMARY | 2018-09-27 06:25 | XMS REPORT ---
Author Author GITA SULTANA Organization [facility] Address [address] [place] [address] Care Team Providers Care Private Chef Name Role Phone GITA SULTANA Unavailable PROBLEMS Type Condition ICD9-CM Code NPG17-LP Code Onset Dates Condition Status SNOMED Code Problem Depressive disorder, not elsewhere classified F32.9 Active 07509009 Problem Anxiety state, unspecified F41.1 Active 104185465 Problem Irregular bleeding N92.6 Active 45243940 Problem Anxiety F41.9 Active 28409520 ALLERGIES Substance Reaction Event Type Date Status Ortho Tri-Cyclen (28) Headaches/mood swings Drug Allergy Jun, Active ENCOUNTERS Encounter Location Date Diagnosis [place] [address] [address] Jun, [place] [address] [address] Jun, Irregular bleeding N92.6 [place] [address] [address] May, Well woman exam with routine gynecological exam Z01.419 and Irregular bleeding N92.6 [place] [address] [place] [id number] [place] [address] May, Anxiety state, unspecified F41.1 and Depressive disorder, not elsewhere classified F32.9 [place] [address] [place] [id number] [place] [address] Mar, Anxiety F41.9 and Irregular bleeding N92.6 [place] [address] [place] [id number] [place] [address] Mar, [place] [address] [address] Mar, Encounter for immunization Z23 [facility] [address] [address] Sep, Acute bacterial conjunctivitis of right eye H10.31 [facility] [address] [address] Mar, Sore throat J02.9 [facility] [address] [place] [id number] [place] [address] Jul, [facility] [address] [address] Jul, [facility] [address] [place] [id number] [place] [address] Mar, [facility] [address] [address] Mar, [facility] [id number] [place] [address] Jul, [facility] [address] [address] Jul, [facility] [address] [address] Jul, [facility] [address] [address] Jul, [facility] [address] [address] Jul, [facility] [address] [address] Jul, [facility] [address] [place] [id number] [address] Jul, [facility] [address] [address] Jun, [facility] [address] [place] [id number] [address] Jun, [facility] [address] [id number] [place] [address] Jun, [facility] [place] [facility] [address] [id number] [place] [address] Jun, [facility] [place] [facility] [address] [id number] [place] [address] Jun, [facility] [place] [facility] [address] [id number] [place] [address] Jun, [facility] [place] [facility] [address] [id number] [place] [address] Nov, [facility] [place] [facility] [address] [id number] [place] [address] Nov, [facility] [place] [facility] [address] [id number] [place] [address] Oct, [facility] [place] [facility] [address] [id number] [place] [address] Sep, [facility] [place] [facility] [address] [id number] [place] [address] Sep, [facility] [place] [facility] [address] [facility] [id number] [place] [address] Jul, [facility] [place] [facility] [address] [id number] [place] [address] Mar, [facility] [place] [facility] [address] [id number] [place] [address] Mar, [facility] [place] [facility] [address] [id number] [place] [address] Mar, [facility] [place] [facility] [address] [id number] [place] [address] Mar, [facility] [place] [facility] [address] [id number] [place] [address] Jan, [facility] [place] [facility] [address] [id number] [place] [address] 24 Jan, 2012 [facility] [place] [facility] [address] [id number] [place] [address] Jan, [facility] [place] [facility] [address] [id number] [place] [address] Jan, [facility] [place] [facility] [address] [id number] [place] [address] Jan, [facility] [place] [facility] [address] [id number] [place] [address] Jan, [facility] [place] [facility] [address] [id number] [place] [address] 04 Jan, 2012 [facility] [place] [facility] [address] [id number] [place] [address] 29 Dec, 2011 [facility] [place] [facility] [address] [id number] [place] [address] 28 Dec, 2011 [facility] [place] [facility] [address] [id number] [place] [address] 27 Dec, 2011 [facility] [place] [facility] [address] [id number] [place] [address] 12 Dec, 2011 [facility] [place] [facility] [address] [id number] [place] [address] 30 Nov, 2011 [facility] [place] [facility] [address] [id number] [place] [address] Nov, [facility] [place] [facility] [address] [id number] [place] [address] Nov, [facility] [place] [facility] [address] [id number] [place] [address] Nov, [facility] [place] [facility] [address] [id number] [place] [address] 08 Nov, 2011 [facility] [place] [facility] [address] [id number] [place] [address] 27 Oct, 2011 [facility] [place] [facility] [address] [id number] [place] [address] 09 Oct, 2011 [facility] [place] [facility] [address] [id number] [place] [address] 20 Sep, 2011 [facility] [place] [facility] [address] [id number] [place] [address] 15 Sep, 2011 [facility] [place] [facility] [address] [id number] [place] [address] 13 Sep, 2011 [facility] [place] [facility] [address] [id number] [place] [address] Sep, [facility] [place] [facility] [address] [id number] [place] [address] Sep, [facility] [place] [facility] [address] [id number] [place] [address] Sep, [facility] [place] [facility] [address] [id number] [place] [address] Sep, [facility] [place] [facility] [address] [id number] [place] [address] August, [facility] [place] [facility] [address] [id number] [place] [address] August, [facility] [place] [facility] [address] [id number] [place] [address] 23 Jun, 2011 [facility] [place] [facility] [address] [id number] [place] [address] 19 Jun, 2011 [facility] [place] [facility] [address] [id number] [place] [address] 13 Jun, 2011 [facility] [place] [facility] [address] [id number] [place] [address] 13 Jun, 2011 [facility] [place] [facility] [address] [id number] [place] [address] 30 May, 2011 [facility] [place] [facility] [address] [address] May, [facility] [address] [address] May, [facility] [address] [address] Mar, [facility] [address] [address] Jan, [facility] [address] [address] Sep, [facility] [id number] [place] [address] August, [facility] [address] [address] Jul, [facility] [id number] [place] [address] Jun, [facility] [address] [address] Jun, [facility] [address] [address] May, [facility] [address] [address] Mar, [facility] [address] [address] 16 Mar, 2008 [facility] [address] [address] Mar, [facility] [address] [address] Mar, IMMUNIZATIONS No Known Immunizations SOCIAL HISTORY Never Assessed REASON FOR VISIT control questions PLAN OF CARE VITAL SIGNS MEDICATIONS Medication Instructions Dosage Frequency Start Date End Date Duration Status Loestrin 05/20 (21) 1-20 MG-MCG Orally Once a day 1 tablet 24h Jun, 21 day(s) Active RESULTS No Results PROCEDURES No Known procedures INSTRUCTIONS MEDICATIONS ADMINISTERED No Known Medications MEDICAL (GENERAL) HISTORY Type Description Date Hospitalization History childbirth only
--- OUTSIDE RECORDS SUMMARY | 2018-09-27 06:25 | XMS REPORT ---
Author Author DEVON ARRIAGA [facility] Address [address] [place] [address] Care Team Providers Care Financial Aid Advisor Name Role Phone CORINA DEVON Unavailable PROBLEMS Type Condition ICD9-CM Code ERV14-ZQ Code Onset Dates Condition Status SNOMED Code Problem Depressive disorder, not elsewhere classified F32.9 Active 68281536 Problem Anxiety state, unspecified F41.1 Active 857957493 Problem Irregular bleeding N92.6 Active 53597046 Problem Anxiety F41.9 Active 13333465 ALLERGIES No Information ENCOUNTERS Encounter Location Date Diagnosis [facility] [address] [address] Jun, [facility] [address] [address] Jun, Irregular bleeding N92.6 [facility] [address] [address] May, Well woman exam with routine gynecological exam Z01.419 and Irregular bleeding N92.6 [facility] [address] [address] May, Anxiety state, unspecified F41.1 and Depressive disorder, not elsewhere classified F32.9 [facility] [address] [address] Mar, Anxiety F41.9 and Irregular bleeding N92.6 [facility] [address] [address] Mar, [facility] [address] [address] Mar, Encounter for immunization Z23 [facility] [address] [place] [address] Sep, Acute bacterial conjunctivitis of right eye H10.31 [facility] [address] [place] [address] Mar, Sore throat J02.9 [facility] [address] [place] [id number] [place] [address] Jul, [facility] [address] [facility] [id number] [place] [address] Jul, [facility] [address] [facility] [id number] [place] [address] Mar, [facility] [address], [place] [address] Mar, [facility] [address] [place] [address] Jul, [facility] [address], [place] [address] Jul, [facility] [address] [place] [id number] [place] [address] Jul, [facility] [address], [place] [address] Jul, [facility] [address] [address] Jul, [facility] [address] [place] [id number] [address] Jul, [facility] [address] [place] [id number] [address] Jul, [facility] [address], [place] [address] Jun, [facility] [address] [place] [id number] [address] Jun, [facility] [address] [place] [id number] [place] [address] 12 Jun, 2013 [facility] [address] [id number] [place] [address] Jun, [facility] [place] [facility] [address] [id number] [place] [address] Jun, [facility] [address] [id number] [place] [address] Jun, [facility] [place] [facility] [address] [id number] [place] [address] Nov, [facility] [place] [facility] [address] [id number] [place] [address] Nov, [facility] [place] [facility] [address] [id number] [place] [address] Oct, [facility] [place] [facility] [address] [id number] [place] [address] Sep, [facility] [address] [id number] [place] [address] Sep, [facility] [place] [facility] [address] [facility] [id number] [place] [address] Jul, [facility] [address] [facility] [id number] [place] [address] Mar, [facility] [place] [facility] [address] [id number] [place] [address] Mar, [facility] [place] [facility] [address] [id number] [place] [address] Mar, [facility] [place] [facility] [address] [id number] [place] [address] Mar, [facility] [place] [facility] [address] [id number] [place] [address] Jan, [facility] [place] [facility] [address] [id number] [place] [address] Jan, [facility] [place] [facility] [address] [id number] [place] [address] 17 Jan, 2012 [facility] [place] [facility] [address] [id number] [place] [address] 17 Jan, 2012 [facility] [place] [facility] [address] [id number] [place] [address] Jan, [facility] [place] [facility] [address] [id number] [place] [address] Jan, [facility] [place] [facility] [address] [id number] [place] [address] 04 Jan, 2012 [facility] [place] [facility] [address] [id number] [place] [address] 29 Dec, 2011 [facility] [place] [facility] [address] [id number] [place] [address] 28 Dec, 2011 [facility] [place] [facility] [address] [id number] [place] [address] 27 Dec, 2011 [facility] [place] [facility] [address] [id number] [place] [address] 12 Dec, 2011 [facility] [place] [facility] [address] [id number], [place] [address] 30 Nov, 2011 [facility] [place] [facility] [address] [id number], [place] [address] Nov, [facility] [place] [facility] [address] [id number], [place] [address] Nov, [facility] [place] [facility] [address] [id number] [place] [address] Nov, [facility] [place] [facility] [address] [id number], [place] [address] Nov, [facility] [place] [facility] [address] [id number], [place] [address] Oct, [facility] [place] [facility] [address] [id number], [place] [address] 09 Oct, 2011 [facility] [place] [facility] [address] [id number] [place] [address] 20 Sep, 2011 [facility] [place] [facility] [address] [id number] [place] [address] 15 Sep, 2011 [facility] [place] [facility] [address] [id number] [place] [address] 13 Sep, 2011 [facility] [place] [facility] [address] [id number] [place] [address] 12 Sep, 2011 [facility] [place] [facility] [address] [id number] [place] [address] 11 Sep, 2011 [facility] [place] [facility] [address] [id number] [place] [address] 10 Sep, 2011 [facility] [place] [facility] [address] [place] [id number] [place] [address] 07 Sep, 2011 [facility] [place] [facility] [address] [id number] [place] [address] August, [facility] [place] [facility] [address] [id number] [place] [address] 24 Aug, 2011 [facility] [place] [facility] [address] [facility] [id number] [place] [address] 23 Jun, 2011 [facility] [place] [facility] [address] [id number] [place] [address] Jun, [facility] [place] [facility] [address] [id number] [place] [address] Jun, [facility] [place] [facility] [address] [id number] [place] [address] Jun, [facility] [place] [facility] [address] [id number] [place] [address] 30 May, 2011 [facility] [place] [facility] [address] [id number] [place] [address] May, [facility] [place] [facility] [address], [place] [address] May, [facility] [address], [place] [address] 14 Mar, 2009 [facility] [address], [place] [address] Jan, [facility] [address], [place] [address] Sep, [facility] [address], [place] [address] August, [facility] [id number] [place] [address] Jul, [facility] [address], [place] [address] Jun, [facility] [address], [place] [address] Jun, [facility] [address], [place] [address] May, [facility] [address], [place] [address] Mar, [facility] [address], [place] [address] 16 Mar, 2008 [facility] [address] [address] Mar, [facility] [id number] [address] Mar, IMMUNIZATIONS Vaccine Route Administration Date Status FLUARIX QUAD (3 AND UP) 2016 IM Intramuscular Mar 01, 2017 Administered SOCIAL HISTORY Never Assessed REASON FOR VISIT Flu shot -- rusty higgins PLAN OF CARE Activity Details Follow Up 1 Year Reason: VITAL SIGNS MEDICATIONS Unknown Medications RESULTS No Results PROCEDURES Procedure Date Ordered Result Body Site FLUARIX QUAD (3 AND UP) 2017 Mar 01, 2017 SINGLE IMMUNIZATION ADMIN Mar 01, 2017 INSTRUCTIONS MEDICATIONS ADMINISTERED No Known Medications MEDICAL (GENERAL) HISTORY Type Description Date Hospitalization History childbirth only
--- OUTSIDE RECORDS SUMMARY | 2018-09-27 06:25 | XMS REPORT | Continuity of Care Document ---
Author Organization Unknown Address Unknown Allergies Active Description Code Type Severity Reaction Onset Reported/Identified Relationship to Patient Clinical Status Yes No Known Drug Allergies [id number] Drug Allergy Unknown N/A 02/26/2012 Yes heparin [id number] Drug Allergy Unknown dad had fatal r 09/20/2018 Medications There is no data. Problems Date Dx Coded Attending Type Code Diagnosis Diagnosed By 03/13/2008 SOFIA ARRIAGA DOA K V22.1 PC OTHER NORMAL 03/13/2008 CORINA GERMAN DEVON K V22.1 Pc Other Normal 03/13/2008 SOFIA ARRIAGA DOA K V22.1 Pc Other Normal 03/13/2008 BASILIO DO APRNIDI A V22.1 Pc Other Normal 03/13/2008 CORINA GERMAN DEVON K V22.1 Pc Other Normal 03/13/2008 HI TORRES ETIENNE A V22.1 Pc Other Normal 03/13/2008 SOFIA ARRIAGA DOA K V22.1 Pc Other Normal 03/15/2008 CORINA GERMAN DEVON K V22.0 Pc Normal First 03/15/2008 CORINA GERMAN DEVON K V22.0 Pc Normal First 03/15/2008 SOFIA ARRIAGA DOA K V22.0 Pc Normal First 03/15/2008 HI TORRES ETIENNE A V22.0 Pc Normal First 03/15/2008 CORINA GERMAN DEVON K V22.0 Pc Normal First 03/15/2008 BASILIO DO APRNIDI A V22.0 Pc Normal First 03/15/2008 SOFIA ARRIAGA DOA K V22.0 Pc Normal First 04/30/2008 SOFIA ARRIAGA DOA K 616.10 Bacterial Vaginosis 04/30/2008 SOFIA ARRIAGA DOA K 616.10 Bacterial Vaginosis 04/30/2008 SOFIA ARRIAGA DOA K 616.10 Bacterial Vaginosis 04/30/2008 HI DIESEL LOCOMOTIVE FIRER/FIREMAN, ETIENNE A 616.10 Bacterial Vaginosis 04/30/2008 ARRIAGA DO, DEVON K 616.10 Bacterial Vaginosis 04/30/2008 HI DIESEL LOCOMOTIVE FIRER/FIREMAN, ETIENNE A 616.10 Bacterial Vaginosis 04/30/2008 ARRIAGA DO, DEVON K 616.10 Bacterial Vaginosis 05/14/2008 ARRIAGA DO, DEVON K 784.0 Headache 05/14/2008 ARRIAGA DO, DEVON K 787.01 Nausea With Vomiting 05/14/2008 ARRIAGA DO, DEVON K 784.0 Headache 05/14/2008 ARRIAGA DO, DEVON K 787.01 Nausea With Vomiting 05/14/2008 ARRIAGA DO, DEVON K 784.0 Headache 05/14/2008 ARRIAGA DO, DEVON K 787.01 Nausea With Vomiting 05/14/2008 HI DIESEL LOCOMOTIVE FIRER/FIREMAN, ETIENNE A 784.0 Headache 05/14/2008 HI DIESEL LOCOMOTIVE FIRER/FIREMAN, ETIENNE A 787.01 Nausea With Vomiting 05/14/2008 ARRIAGA DO, DEVON K 784.0 Headache 05/14/2008 ARRIAGA DO, DEVON K 787.01 Nausea With Vomiting 05/14/2008 HI DIESEL LOCOMOTIVE FIRER/FIREMAN, ETIENNE A 784.0 Headache 05/14/2008 HI DIESEL LOCOMOTIVE FIRER/FIREMAN, ETIENNE A 787.01 Nausea With Vomiting 05/14/2008 ARRIAGA DO, DEVON K 784.0 Headache 05/14/2008 ARRIAGA DO, DEVON K 787.01 Nausea With Vomiting 11/27/2008 ARRIAGA DO, DEVON K V25.41 Surveillance Of Contraceptive Pill 11/27/2008 ARRIAGA DO, DEVON K V72.31 Artificial Cherry Maker Exam, Routine 11/27/2008 ARRIAGA DO, DEVON K V25.41 Surveillance Of Contraceptive Pill 11/27/2008 ARRIAGA DO, DEVON K V72.31 Artificial Cherry Maker Exam, Routine 11/27/2008 ARRIAGA DO, DEVON K V25.41 Surveillance Of Contraceptive Pill 11/27/2008 ARRIAGA DO, DEVON K V72.31 Artificial Cherry Maker Exam, Routine 11/27/2008 HI DIESEL LOCOMOTIVE FIRER/FIREMAN, ETIENNE A V25.41 Surveillance Of Contraceptive Pill 11/27/2008 HI DIESEL LOCOMOTIVE FIRER/FIREMAN, ETIENNE A V72.31 Artificial Cherry Maker Exam, Routine 11/27/2008 ARRIAGA DO, DEVON K V25.41 Surveillance Of Contraceptive Pill 11/27/2008 ARRIAGA DO, DEVON K V72.31 Artificial Cherry Maker Exam, Routine 11/27/2008 HI DIESEL LOCOMOTIVE FIRER/FIREMAN, ETIENNE A V25.41 Surveillance Of Contraceptive Pill 11/27/2008 HI DIESEL LOCOMOTIVE FIRER/FIREMAN, ETIENNE A V72.31 Artificial Cherry Maker Exam, Routine 11/27/2008 ARRIAGA DO, DEVON K V25.41 Surveillance Of Contraceptive Pill 11/27/2008 ARRIAGA DO, DEVON K V72.31 Artificial Cherry Maker Exam, Routine 01/25/2010 ARRIAGA DO, DEVON K 466.0 Bronchitis, Acute 01/25/2010 ARRIAGA DO, DEVON K 466.0 Bronchitis, Acute 01/25/2010 ARRIAGA DO, DEVON K 466.0 Bronchitis, Acute 01/25/2010 HI DIESEL LOCOMOTIVE FIRER/FIREMAN, ETIENNE A 466.0 Bronchitis, Acute 01/25/2010 ARRIAGA DO, DEVON K 466.0 Bronchitis, Acute 01/25/2010 HI DIESEL LOCOMOTIVE FIRER/FIREMAN, ETIENNE A 466.0 Bronchitis, Acute 01/25/2010 ARRIAGA DO, DEVON K 466.0 Bronchitis, Acute 2010 ARRIAGA DO, DEVON K 799.24 Emotional Lability 2010 ARRIAGA DO, DEVON K 799.24 Emotional Lability 2010 ARRIAGA DO, DEVON K 799.24 Emotional Lability 2010 HI DIESEL LOCOMOTIVE FIRER/FIREMAN, ETIENNE A 799.24 Emotional Lability 2010 ARRIAGA DO, DEVON K 799.24 Emotional Lability 2010 HI DIESEL LOCOMOTIVE FIRER/FIREMAN, ETIENNE A 799.24 Emotional Lability 2010 ARRIAGA DO, DEVON K 799.24 Emotional Lability 05/30/2011 ARRIAGA DO, DEVON K 461.9 Sinusitis Acute 05/30/2011 ARRIAGA DO, DEVON K 461.9 Sinusitis Acute 05/30/2011 ARRIAGA DO, DEVON K 461.9 Sinusitis Acute 05/30/2011 HI DIESEL LOCOMOTIVE FIRER/FIREMAN, ETIENNE A 461.9 Sinusitis Acute 05/30/2011 ARRIAGA DO, DEVON K 461.9 Sinusitis Acute 05/30/2011 HI DIESEL LOCOMOTIVE FIRER/FIREMAN, ETIENNE A 461.9 Sinusitis Acute 05/30/2011 ARRIAGA DO DEVON K 461.9 Sinusitis Acute 07/12/2011 ARRIAGA DO, DEVON K 477.9 Rhinitis 07/12/2011 ARRIAGA DO DEVON K V70.0 Routine General Medical Examination At A Health Care Facility 07/12/2011 ARRIAGA DO DEVON K 477.9 Rhinitis 07/12/2011 ARRIAGA DO DEVON K V70.0 Routine General Medical Examination At A Health Care Facility 07/12/2011 ARRIAGA DOSOFIAA K 477.9 Rhinitis 07/12/2011 ARRIAGA DO DEVON K V70.0 Routine General Medical Examination At A Health Care Facility 07/12/2011 HI DIESEL LOCOMOTIVE FIRER/FIREMAN, ETIENNE A 477.9 Rhinitis 07/12/2011 HI DIESEL LOCOMOTIVE FIRER/FIREMAN, ETIENNE A V70.0 Routine General Medical Examination At A Health Care Facility 07/12/2011 ARRIAGA DO DEVON K 477.9 Rhinitis 07/12/2011 ARRIAGA DO DEVON K V70.0 Routine General Medical Examination At A Health Care Facility 07/12/2011 HI DIESEL LOCOMOTIVE FIRER/FIREMAN, ETIENNE A 477.9 Rhinitis 07/12/2011 HI DIESEL LOCOMOTIVE FIRER/FIREMAN, ETIENNE A V70.0 Routine General Medical Examination At A Health Care Facility 07/12/2011 ARRIAGA DO DEVON K 477.9 Rhinitis 07/12/2011 ARRIAGA DO DEVON K V70.0 Routine General Medical Examination At A Health Care Facility 10/06/2011 ARRIAGA DO DEVON K 239.3 BREAST MASS 10/06/2011 ARRIAGA DO DEVON K V74.5 Std Screen 10/06/2011 ARRIAGA DO DEVON K V76.2 Cervical Cancer Screening (pap Smear) 10/06/2011 ARRIAGA DO DEVON K 239.3 Breast Mass 10/06/2011 ARRIAGA DO DEVON K V74.5 Std Screen 10/06/2011 ARRIAGA DO, DEVON K V76.2 Cervical Cancer Screening (pap Smear) 10/06/2011 ARRIAGA DO, DEVON K 239.3 Breast Mass 10/06/2011 ARRIAGA DO, DEVON K V74.5 Std Screen 10/06/2011 ARRIAGA DO, DEVON K V76.2 Cervical Cancer Screening (pap Smear) 10/06/2011 HI DIESEL LOCOMOTIVE FIRER/FIREMAN, ETIENNE A 239.3 Breast Mass 10/06/2011 HI DIESEL LOCOMOTIVE FIRER/FIREMAN, ETIENNE A V74.5 Std Screen 10/06/2011 HI DIESEL LOCOMOTIVE FIRER/FIREMAN, ETIENNE A V76.2 Cervical Cancer Screening (pap Smear) 10/06/2011 DEVON ARRIAGA DO K 239.3 Breast Mass 10/06/2011 DEVON ARRIAGA DO V74.5 Std Screen 10/06/2011 DEVON ARRIAGA DO K V76.2 Cervical Cancer Screening (pap Smear) 10/06/2011 HI DIESEL LOCOMOTIVE FIRER/FIREMAN, ETIENNE A 239.3 Breast Mass 10/06/2011 HI DIESEL LOCOMOTIVE FIRER/FIREMAN, ETIENNE A V74.5 Std Screen 10/06/2011 HI DIESEL LOCOMOTIVE FIRER/FIREMAN, ETIENNE A V76.2 Cervical Cancer Screening (pap Smear) 10/06/2011 DEVON ARRIAGA DO K 239.3 Breast Mass 10/06/2011 DEVON ARRIAGA DO V74.5 Std Screen 10/06/2011 DEVON ARRIAGA DO V76.2 Cervical Cancer Screening (pap Smear) 02/15/2012 DEVON ARRIAGA DO V04.81 FLU SHOT 02/15/2012 DEVON ARRIAGA DO V04.81 Flu Shot 02/15/2012 DEVON ARRIAGA DO V04.81 Flu Shot 02/15/2012 HI DIESEL LOCOMOTIVE FIRER/FIREMAN, ETIENNE A V04.81 Flu Shot 02/15/2012 ARRIAGA DEVON GERMAN V04.81 Flu Shot 02/15/2012 HI DIESEL LOCOMOTIVE FIRER/FIREMAN, ETIENNE A V04.81 Flu Shot 02/15/2012 ARRIAGA DEVON GERMAN K V04.81 Flu Shot 04/16/2012 DEVON ARRIAGA DO V24.2 F/U, ROUTINE 04/16/2012 DEVON ARRIAGA DO V25.09 CONTRACEPTIVE COUNSELING - GENERAL 04/16/2012 DEVON ARRIAGA DO V24.2 F/U, ROUTINE 04/16/2012 DEVON ARRIAGA DO V25.09 CONTRACEPTIVE COUNSELING - GENERAL 04/16/2012 HI MELISSA ETIENNE A V24.2 F/U, ROUTINE 04/16/2012 HI BASILIO TORRESIDI A V25.09 CONTRACEPTIVE COUNSELING - GENERAL 04/16/2012 DEVON ARRIAGA DO V24.2 F/U, ROUTINE 04/16/2012 DEVON ARRIAGA DO V25.09 CONTRACEPTIVE COUNSELING - GENERAL 04/16/2012 HI DIESEL LOCOMOTIVE FIRER/FIREMAN, ETIENNE A V24.2 F/U, ROUTINE 04/16/2012 HI DIESEL LOCOMOTIVE FIRER/FIREMAN, ETIENNE A V25.09 CONTRACEPTIVE COUNSELING - GENERAL 04/16/2012 DEVON ARRIAGA DO K V24.2 F/U, ROUTINE 04/16/2012 DEVON ARRIAGA DO K V25.09 CONTRACEPTIVE COUNSELING - GENERAL 08/08/2012 DEVON ARRIAGA DO K 786.50 CHEST PAIN 08/08/2012 HI DIESEL LOCOMOTIVE FIRER/FIREMAN, ETIENNE A 786.50 CHEST PAIN 08/08/2012 ARRIAGA SOFIA GERMANA K 786.50 CHEST PAIN 08/08/2012 HI DIESEL LOCOMOTIVE FIRER/FIREMAN, ETIENNE A 786.50 CHEST PAIN 08/08/2012 ARRIAGA SOFIA GERMANA K 786.50 CHEST PAIN 06/10/2013 HI DIESEL LOCOMOTIVE FIRER/FIREMAN, ETIENNE A 626.4 IRREGULAR MENSTRUAL CYCLE 06/10/2013 HI DIESEL LOCOMOTIVE FIRER/FIREMAN ETIENNE A 704.1 HIRSUTISM 06/10/2013 HI DIESEL LOCOMOTIVE FIRER/FIREMANBASILIO HolderIDI A V25.01 CONTRACEPTION - ORAL CONTRACEPTION 06/10/2013 DEVON ARRIAGA DO K 626.4 IRREGULAR MENSTRUAL CYCLE 06/10/2013 SOFIA ARRIAGA DOA K 704.1 HIRSUTISM 06/10/2013 SOFIA ARRIAGA DOA K V25.01 CONTRACEPTION - ORAL CONTRACEPTION 06/10/2013 HI DIESEL LOCOMOTIVE FIRER/FIREMANBASILIO HolderIDI A 626.4 IRREGULAR MENSTRUAL CYCLE 06/10/2013 HI DIESEL LOCOMOTIVE FIRER/FIREMAN, ETIENNE A 704.1 HIRSUTISM 06/10/2013 HI DIESEL LOCOMOTIVE FIRER/FIREMAN, ETIENNE A V25.01 CONTRACEPTION - ORAL CONTRACEPTION 06/10/2013 SOFIA ARRIAGA DOA K 626.4 IRREGULAR MENSTRUAL CYCLE 06/10/2013 SOFIA ARRIAGA DOA K 704.1 HIRSUTISM 06/10/2013 SOFIA ARRIAGA DOA K V25.01 CONTRACEPTION - ORAL CONTRACEPTION 06/24/2013 SOFIA ARRIAGA DOA K 466.0 BRONCHITIS, ACUTE 06/24/2013 HIBASILIO Holder APRNIDI A 466.0 BRONCHITIS, ACUTE 06/24/2013 SOFIA ARRIAGA DOA K 466.0 BRONCHITIS, ACUTE 08/12/2013 HI DIESEL LOCOMOTIVE FIRER/FIREMANBASILIO HolderIDI A V74.1 TB SCREENING 08/12/2013 SOFIA ARRIAGA DOA K V74.1 TB SCREENING 03/03/2014 DEVON ARRIAGA DO K 110.5 DERMATOPHYTOSIS OF THE BODY 09/24/2018 NILA GIBSON DO Ot N85.00 ENDOMETRIAL HYPERPLASIA, UNSPECIFIED 09/24/2018 NILA GIBSON DO Ot Z01.812 ENCOUNTER FOR PREPROCEDURAL LABORATORY E 09/24/2018 NILA GIBSON DO Ot Z11.2 ENCOUNTER FOR SCREENING FOR OTHER BACTER Procedures Code Description [place] [address] URINALYSIS, DIP SHORT OB 06/11/2008 69222 URINALYSIS, DIP SHORT OB 07/09/2008 96386 CBC 07/11/2008 85682 GLUCOSE DELMY 1 HOUR 07/11/2008 11431 URINALYSIS, DIP STICK/OB 08/08/2008 99133 ROUTINE VENIPUNCTURE 10/13/2008 23920 URINALYSIS NONAUTO W/O SCOPE 10/13/2008 25623 ALPHA-FETOPROTEIN, SERUM 10/13/2008 21054 ASSAY OF ESTRIOL 10/13/2008 67901 CHORIONIC GONADOTROPIN TEST 10/13/2008 87593 INHIBIN A 10/13/2008 57694 NON-STRESS TEST 02/15/2012 17766 UA OB DIP 02/15/2012 00123 UA OB DIP 02/22/2012 37860 EKG, TRACING (IN-HOUSE) 08/08/2012 66650 ROUTINE VENIPUNCTURE 06/10/2013 68090 TSH 06/10/2013 57127 TB TEST INTRADERMAL 08/12/2013 Results Test Result Range CBC - 04/13/17 16:18 WHITE BLOOD CELL COUNT 8.8 Thousand/uL 3.8-10.8 RED BLOOD CELL COUNT 5.13 Million/uL 3.80-5.10 HEMOGLOBIN 13.9 g/dL 11.7-15.5 HEMATOCRIT 42.9 % 35.0-45.0 MCV 83.6 fL 80.0-100.0 MCH 27.1 pg 27.0-33.0 MCHC 32.4 g/dL 32.0-36.0 RDW 12.6 % 11.0-15.0 PLATELET COUNT 359 Thousand/uL 140-400 MPV 10.2 fL 7.5-12.5 ABSOLUTE NEUTROPHILS 5755 cells/uL 7813-4913 ABSOLUTE LYMPHOCYTES 2235 cells/uL 850-3900 ABSOLUTE MONOCYTES 616 cells/uL 200-950 ABSOLUTE EOSINOPHILS 132 cells/uL 15-500 ABSOLUTE BASOPHILS 62 cells/uL 0-200 NEUTROPHILS 65.4 % NRG LYMPHOCYTES 25.4 % NRG MONOCYTES 7.0 % NRG EOSINOPHILS 1.5 % NRG BASOPHILS 0.7 % NRG CULTURE, GENITAL - 05/31/17 15:33 CULTURE, GENITAL SEE NOTE NRG SUREPATH PAP RFX HPV mRNA E6/E7 - 05/31/17 15:33 CLINICAL INFORMATION: NRG LMP: NRG PREV. PAP: NRG PREV. BX: NRG SOURCE: Cervix NRG STATEMENT OF ADEQUACY: NRG INTERPRETATION/RESULT: NRG MANAGER ENTRY: NRG TISSUE, SPECIMEN A - 06/28/18 11:16 A SOURCE NRG A GROSS DESCRIPTION NRG A DIAGNOSIS NRG A COMMENT NRG Complete blood count (CBC) with automated white blood cell (WBC) differential - 09/20/18 10:25 Blood leukocytes automated count (number/volume) 5.7 10*3/uL 4.3-11.0 Blood erythrocytes automated count (number/volume) 5.12 10*6/uL 4.35-5.85 Venous blood hemoglobin measurement (mass/volume) 13.3 g/dL 11.5-16.0 Blood hematocrit (volume fraction) 40 % 35-52 Automated erythrocyte mean corpuscular volume 77 [foz_us] 80-99 Automated erythrocyte mean corpuscular hemoglobin (mass per erythrocyte) 26 pg 25-34 Automated erythrocyte mean corpuscular hemoglobin concentration measurement (mass/volume) 34 g/dL 32-36 Automated erythrocyte distribution width ratio 14.1 % 10.0- 14.5 Automated blood platelet count (count/volume) 347 10*3/uL 130-400 Automated blood platelet mean volume measurement 10.3 [foz_us] 7.4-10.4 Automated blood neutrophils/100 leukocytes 63 % 42-75 Automated blood lymphocytes/100 leukocytes 27 % 12-44 Blood monocytes/100 leukocytes 8 % 0-12 Automated blood eosinophils/100 leukocytes 1 % 0-10 Automated blood basophils/100 leukocytes 1 % 0-10 Blood neutrophils automated count (number/volume) 3.6 10*3 1.8-7.8 Blood lymphocytes automated count (number/volume) 1.5 10*3 1.0-4.0 Blood monocytes automated count (number/volume) 0.5 10*3 0.0- 1.0 Automated eosinophil count 0.1 10*3/uL 0.0-0.3 Automated blood basophil count (count/volume) 0.0 10*3/uL 0.0-0.1 Blood type T Indirect antibody screen panel - 09/20/18 10:25 ABO+Rh group BP NRG Blood group antibody screen NEGATIVE NRG Methicillin resistant Staphylococcus aureus (MRSA) screening culture - 09/20/18 10:25 Methicillin resistant Staphylococcus aureus (MRSA) screening culture NEG NRG Encounters ACCT No. Visit Date/Time Discharge Status Pt. Type Provider Facility Loc./Unit Complaint [id number] 03/03/2014 15:51:00 03/03/2014 23:59:59 CLS Outpatient DEVON ARRIAGA DO [id number] 08/12/2013 16:05:00 08/12/2013 23:59:59 CLS Outpatient ETIENNE DO APRN [id number] 06/24/2013 16:12:00 06/24/2013 23:59:59 CLS Outpatient DEVON ARRIAGA DO [id number] 06/10/2013 13:54:00 06/10/2013 23:59:59 CLS Outpatient ETIENNE DO APRN [id number] 08/08/2012 16:17:00 08/08/2012 23:59:59 CLS Outpatient DEVON ARRIAGA DO [id number] 04/16/2012 16:19:00 04/16/2012 23:59:59 [place] [id number] 02/02/2012 09:29:00 02/02/2012 23:59:59 CLS Outpatient DEVON ARRIAGA DO [id number] 09/20/2018 10:04:00 09/20/2018 10:35:00 DIS Outpatient NILA GIBSON DO [facility] PREOP COMPLEX ENDOMETRIAL HYPERPLASIA [id number] 08/27/2018 11:37:00 08/27/2018 23:59:59 CLS Outpatient NILA GIBSON DO [facility] RAD ABNORMAL UTERINE BLEEDING [id number] 09/27/2018 06:18:00 ACT Outpatient NILA GIBSON DO [facility] SDC COMPLEX ENDOMETRIAL HYPERPLASIA [id number] 07/26/2018 09:00:00 07/26/2018 23:59:59 CLS Outpatient GITA SULTANA [facility] [id number] 06/28/2018 10:40:00 Document Registration [id number] 05/31/2017 12:40:00 Document Registration [id number] 04/13/2017 15:00:00 Document Registration
--- OUTSIDE RECORDS SUMMARY | 2018-09-27 06:25 | XMS REPORT ---
Author Author BART CHAPPELL Organization [employer] Address Unknown Phone Unavailable Care Team Providers Care [facility] Caretaker Name Role Phone BART CHAPPELL CP Unavailable Allergies, Adverse Reactions, Alerts Substance Reaction Event Type N.K.D.A. 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 [address]-12 500 MG Orally 3 times a day Apr 21, 2015 May 01, 2015 1 tablet Procedures Procedure Coding System Code Date CULTURE, BACTERIA, OTHER CPT-4 19092 Apr 21, 2015 Office Visit, Est Pt., Level 3 CPT-4 48176 Apr 21, 2015 STREP A ASSAY W/OPTIC CPT-4 68971 Apr 21, 2015 Vital Signs Date/Time: Apr 21, 2015 Temperature 98.7 F Weight 150 lbs Height 62 in BMI 27.43 Index Blood Pressure Diastolic 70 mmHg Blood Pressure Systolic 118 mmHg Cardiac Monitoring Heart Rate 90 bpm Results Name Result Date Reference Range Unit Abnormality Flag STREP A (IN HOUSE) ----STREP A negative [id number] ----Control + [id number] ----Lot # [id number] ----Exp date september [id number] Summary Purpose [employer] Submission
[2018-09-27] MEDS ORDERED: ceFAZolin 2 GM/50 ML NS 50 ML IV ONE (06:30)
[2018-09-27] MEDS ORDERED: metroNIDAZOLE 500MG/100ML IVPB 100 ML IV ONE (06:30)
[2018-09-27] MEDS ORDERED: BUPIVACAINE 0.25% 30 ML (SENSORCAINE) VIAL ONE (06:49)
[2018-09-27] MEDS ORDERED: proPOfol 200 MG/20 ML (DIPRIVAN) VIAL IV ONE (06:53)
[2018-09-27] MEDS ORDERED: ONDANSETRON 4 MG/2 ML (SDV) Z0FRAN ONE (06:53)
[2018-09-27] MEDS ORDERED: LIDOCAINE PF 2% 5 ML (XYLOCAINE) VIAL ONE (06:53)
[2018-09-27] MEDS ORDERED: ROCURONIUM 10 MG/ML 5 ML SYRINGE IV ONE (06:53)
[2018-09-27] MEDS ORDERED: SEVOFLURANE (ULTANE) 15 ML INHAL SOLN ONE ×3 (06:53→08:54)
[2018-09-27] MEDS ORDERED: DEXAMETHASONE 10 MG/ML (DECADRON) 1 ML VIAL ONE (06:53)
[2018-09-27] MEDS ORDERED: MIDAZOLAM 2 MG/2 ML (VERSED) VIAL ONE (06:54)
[2018-09-27] MEDS ORDERED: fentaNYL INJECTION 100 MCG/2 ML AMP ONE (06:54)
--- NOTE | 2018-09-27 07:04 | Progress Note-Pre Operative ---
Pre-Operative Progress Note H&P Reviewed The H&P was reviewed, patient examined and no changes noted. Date Seen by Provider: September 27, 2018 Time Seen by Provider: 07:00 Date H&P Reviewed: September 27, 2018 Time H&P Reviewed: 07:00 Pre-Operative Diagnosis: Endometrial Complex Hyperplasia NILA GIBSON DO September 27, 2018 07:04
[2018-09-27] MEDS: LACTATED RINGERS 1,000 ML IV PRN ×2 (07:20→08:35)
[2018-09-27] MEDS ORDERED: LACTATED RINGERS 1,000 ML IV SCH (07:38)
--- NOTE | 2018-09-27 07:41 | Discharge Inst-Women's Service ---
Discharge Inst-Women's Serv Depart Medication/Instructions New, Converted or Re-Newed RX: RX on Chart Consults/Follow Up Additional Follow Up: Yes Orders/Referrals Dr. Rossi in 7-10 days and in 8 weeks Activity Activity: Activity as Tolerated Driving Instructions: You May Drive (do not drive while requiring hydrocodone for pain) NO SMOKING: NO SMOKING Nothing Inside Vagina: No Douching, No Doran, No Tampons Diet Discharge Diet: No Restrictions Symptoms to Report to : Bleeding Excessive, Pain Increased, Fever Over 101 Degrees F, Vaginal Bleeding Increase, Questions/Concerns For Any Problems or Questions: Contact Your Physician Skin/Wound Care Infection Signs and Symptoms: Increased Redness, Foul Odor of Wound, Increased Drainage, Skin Itchy or Has a Rash, Increased Swelling, Temperature Above 101 F Operative Area Clean and Dry: Keep Incision Clean/Dry Stitches/Xavi/Dermabond: Dermabond, Care of Stitches Bathing Instructions: NILA Gilmore DO September 27, 2018 07:41
[2018-09-27] MEDS ORDERED: DOCUSATE SODIUM 100 MG (COLACE) CAP PO PRN (07:45)
[2018-09-27] MEDS ORDERED: ANTACID SUSP 30 ML UDC (MYLANTA) PO PRN (07:45)
[2018-09-27] MEDS ORDERED: CHLORASEPTIC LOZENGE MM PRN (07:45)
[2018-09-27] MEDS ORDERED: HYDROcodone/APAP 7.5 MG/325 MG (LORTAB, LORCET PLUS) TABLET PO PRN (07:45)
[2018-09-27] MEDS ORDERED: SIMETHICONE 80 MG (MYLICON) CHEW PO PRN (07:45)
[2018-09-27] MEDS ORDERED: KETOROLAC 30 MG/ML VIAL IV PRN (07:45)
[2018-09-27] MEDS ORDERED: ONDANSETRON 4 MG/2 ML (SDV) Z0FRAN IV PRN (07:45)
[2018-09-27] MEDS ORDERED: ZOLPIDEM 5 MG (AMBIEN) TAB PO PRN (07:45)
[2018-09-27] MEDS ORDERED: SIME80TA16 PO (08:47)
[2018-09-27] MEDS ORDERED: IBUP-844 PO (08:47)
[2018-09-27] MEDS ORDERED: HYDR-34 PO (08:47)
[2018-09-27] MEDS ORDERED: DOCU100C37 PO (08:47)
[2018-09-27] MEDS ORDERED: KETOROLAC 30 MG/ML VIAL ONE (09:13)
[2018-09-27] MEDS ORDERED: ONDANSETRON 4 MG/2 ML (SDV) Z0FRAN IVP PRN (09:15)
[2018-09-27] MEDS ORDERED: MEPERIDINE (DEMEROL) INJ 50 MG/ML IVP ONE (09:15)
[2018-09-27] MEDS ORDERED: morphine INJ 10 MG/ML 1ML (SYR OR VIAL) IVP ONE (09:15)
--- NOTE | 2018-09-27 10:00 | NUR ---
JENIFFER WHITTAKER TRANSFERRED TO ROOM 306 VIA PT BED FROM PACU ACC BY KASIE DIAZ LABORATORY AIDE AFTER A ROBOTIC ASSISTED LAPAROSCOPIC HYSTERECTOMY WITH BILATERAL SALPINGETOMY TODAY BY DR. GIBSON. JENIFFER WHITTAKER introduced to surroundings, call light, bed controls, phone, TV, temperature control, lights, meal times, smoking policy, visitor policy, side rail policy, bathrooms and showers. Patient Rights given to patient in the handbook.J
--- NOTE | 2018-09-27 11:15 | NUR ---
ICE PACK FRESHENED. FAMILY AT BEDSIDE.
--- NOTE | 2018-09-27 11:32 | NUR ---
LORTAB 7.5/325 2 TABS P.O. FOR C/O ABD PAIN. EATING LUNCH.
--- NOTE | 2018-09-27 11:45 | NUR ---
RT NOTIFIED OF NEED FOR INCENTIVE SPIROMETRY.
--- NOTE | 2018-09-27 12:08 | NUR ---
DR. GIBSON NOTIFIED OF PT'S IV BEING IN AC SPACE AND NOT WANTING TO RUN. UPDATE GIVEN ON VS, PT EATING AND DRINKING AND DOING WELL. ORDER TO D/C IV.
--- NOTE | 2018-09-27 12:45 | NUR ---
THURSTON D/C'ED WITH 950 CC DILUTE URINE IN BAG. UP TO THE BATHROOM FOR PERICARE. VOIDED 50 CC. UNDERWEAR AND PAD APPLIED. NO VAGINAL BLEEDING AT THIS TIME.
--- NOTE | 2018-09-27 12:55 | NUR ---
OUT TO AMBULATE IN THE [place] WITH FAMILY. MOVING WELL. OFFERS NO COMPLAINTS.
--- NOTE | 2018-09-27 13:42 | OPERATIVE REPORT ---
DATE OF SERVICE: 09/27/2018 PREOPERATIVE DIAGNOSIS: A 33-year-old female with complex endometrial hyperplasia. POSTOPERATIVE DIAGNOSIS: A 33-year-old female with complex endometrial hyperplasia. PROCEDURE: Robotic-assisted total laparoscopic hysterectomy with bilateral salpingectomy. SURGEON: Ignacio Gibson DO ANESTHESIA: General endotracheal. ESTIMATED BLOOD LOSS: Minimal. URINE OUTPUT: 400 mL clear at the end of the procedure. FLUIDS: 1200 mL of lactated Ringer's solution. FINDINGS: A grossly normal appearing uterus with bilateral fallopian tubes and grossly normal appearing bilateral ovaries, grossly normal appearing external female genitalia and vaginal mucosa. SPECIMENS SENT: Uterus, bilateral fallopian tubes. INDICATION FOR PROCEDURE: This is a 33-year-old female, who is a patient that had a history of abnormal uterine bleeding and heavier periods. She underwent an ultrasound and endometrial sampling at another facility and was sent to my office after complex hyperplasia was identified on endometrial sampling. I consulted with the patient in detail and in depth in my office about more conservative measures including long-term progestin reversal of hyperplasia and a normal endometrial tissue. We discussed using this in either oral progestin form or also an IUD with progestin as well. We also discussed proceeding with hysterectomy. With the patient's family history, she thought that hysterectomy would be a better option for her. Risks of the procedure was detailed with the patient including risk of bleeding, infection, damage to surrounding structures including, but not limited to bowel, bladder, ureter, kidneys, possible need for postoperative reoperation, postoperative complications that could occur. We discussed risk from anesthesia, recovery time frame and even . After everything was discussed with the patient, consent was obtained and reviewed in the preoperative area and the patient was taken to the operating room. OPERATIVE REPORT IN DETAIL: Once in the operating room, general anesthesia was found to be adequate, placed in dorsal lithotomy position, prepped and draped in normal sterile fashion. Valderrama catheter was placed in sterile technique and a timeout was performed. A weighted speculum was inserted into the patient's vagina. A right angle retractor was used to visualize the cervix, which was grasped with a polyp at 12 o'clock position using a long Allis clamp and 0 Vicryl suture was placed in the anterior lip of the cervix and an Allis clamp was removed. The suture was then used as my retraction. I then gently sounded the uterine cavity and depth was found to be 8 cm. I selected an 8 cm Angela uterine manipulator tip and a 3.5 cm colpotomy ring advanced to the uterine manipulator tip into the endometrium deploying the balloon and advancing the colpotomy ring around the vaginal fornix. Once it is secured, I removed all the other instruments from the patient's vagina and performed a change of gloves and taken to my attention to the abdomen where infraumbilically I infiltrated this area using 0.25% Marcaine. I made an 8 mm incision with the knife and introduced the Veress needle through the incision until intraperitoneal placement was confirmed using a saline drop test. I proceeded with insufflation using CO2 gas and opening pressure of 3 mmHg was noted. I proceeded to maximum pressure of 15 mmHg, at which point, I removed the Veress needle and introduced an 8 mm blunt da Gary camera trocar. Once this was in place, I am able to confirm intraperitoneal placement using the da Gary laparoscope. I then briefly scanned the upper abdominal anatomy and my entry site and there was no evidence of damage upon my entry. I have the patient placed in steep Trendelenburg and I am able to visualize all of my pelvic anatomy findings as detailed above. I then placed two lateral trocars. These were both 8 mm trocars. They were placed approximately 8 cm lateral to my infraumbilical trocar. The trocars were placed under direct visualization of the laparoscope. I then brought in the da Gary robot and docked in the appropriate fashion using the da Gary vessel sealer in the left hand and monopolar vernon in the right hand. I took my place at the [facility] [employer] operative console. I performed the following dissection bilaterally starting at the uteroovarian ligament. I bipolar cauterized and transected this using the vessel sealer. I then created a window in the mesosalpinx and took this laterally using the vessel sealer amputating the fallopian tube from its surrounding blood supply. I then grasped the round ligament, bipolar cauterized and transected using the vessel sealer. The entire broad ligament then can be grasped. It is bipolar cauterized and transected using the vessel sealer down to the level of the lower uterine segment. At that point, I the anterior and posterior leaflets of the broad ligament. The anterior leaflet dissection was taken around the anterior vaginal fornix. The posterior leaflet was taken around the posterior vaginal fornix, which allows me to skeletonize the uterine vessels laterally, which I then bipolar cauterized and transected using the vessel sealer. I then performed a colpotomy at 12 o'clock and 6 o'clock position using monopolar vernon and took the colpotomy circumferentially using monopolar vernon. This amputated the cervix from the surrounding vaginal fornix. The cervix, uterus and bilateral fallopian tubes were then removed through the vagina. I then performed a change of instruments and proceeded with closing the vaginal cuff. The lateral vaginal apices are closed using 2-0 Vicryl suture in a [id number] fashion, colposuspending them to the uterosacral ligaments. I then closed the middle portion of the vaginal cuff using 2-0 V-Loc in a running fashion, after which there was no active bleeding noted from any of my dissection planes. I then undocked the da Gary robot and removed all of the needles and instruments and proceeded with the remainder of the case laparoscopically. I then copiously irrigated the pelvis again using normal saline. Once again, there was no active bleeding noted from any of my dissection planes. I placed FloSeal hemostatic agent over my planes of dissection and took the patient out of steep Trendelenburg. The lateral trocars were removed under direct visualization of the laparoscope. The infraumbilical trocar is then left in place to release insufflation and to introduce 10 mL of 0.25% Marcaine into the peritoneal cavity for postoperative pain management. I then removed this trocar as well. The skin was then reapproximated using 4-0 Monocryl in interrupted subcuticular stitches. Dermabond was applied to the incision and Band-Aids were placed over this. A Valderrama catheter was left in place. The patient tolerated the procedure well and was taken to recovery area in stable condition. Lap and sponge counts were correct at the end of the procedure. Instrument counts were correct as well. Two grams of Ancef and 500 mg of lidocaine preoperatively for infection prophylaxis. Job ID: [id number] DocumentID: [id number] Dictated Date: 09/27/2018 09:10:25 Accounts Supervisor Date: 09/27/2018 13:41:14 Dictated By: IGNACIO GIBSON DO
--- NOTE | 2018-09-27 14:20 | NUR ---
PT ABLE TO GO HOME PER DR. GIBSON.
--- NOTE | 2018-09-27 14:22 | Anesthesia-General Post-Op ---
General Patient Condition Mental Status/LOC: Same as Preop Cardiovascular: Satisfactory Nausea/Vomiting: Absent Respiratory: Satisfactory Pain: Controlled Complications: Absent Post Op Complications Complications None Follow Up Care/Instructions Patient Instructions None needed. Anesthesia/Patient Condition Patient Condition Patient is doing well, no complaints, stable vital signs, no apparent adverse anesthesia problems. No complications reported per nursing. D/C home per [facility] Criteria: Yes JOHN BOX CRNA September 27, 2018 14:22
[2018-09-27] MEDS ORDERED: IBUPROFEN 600 MG (MOTRIN) TAB PO ONE (14:26)
--- NOTE | 2018-09-27 14:45 | NUR ---
DISCHARGE INSTRUCTIONS REVIEWED WITH COPY TO PT RXS GIVEN. STATES UNDERSTANDING OF ALL INSTRUCTIONS AND NEED TO F/U SCHEDULED AND NEEDED.
--- NOTE | 2018-09-27 14:50 | NUR ---
DISMISSED FROM [facility]IA [facility]/C IN STABLE CONDITION TO [facility] BY SPOUSE, [facility]ILY [facility] AND [facility] WILLSON.
[2018-09-28] MEDS ORDERED: IBUPROFEN 600 MG (MOTRIN) TAB PO PRN (00:30)
--- NOTE | 2018-09-28 14:32 | Anesthesia-General Post-Op ---
General Patient Condition Mental Status/LOC: Same as Preop Cardiovascular: Satisfactory Nausea/Vomiting: Absent Respiratory: Satisfactory Pain: Controlled Complications: Absent Post Op Complications Complications None Follow Up Care/Instructions Patient Instructions None needed. Anesthesia/Patient Condition Patient Condition Patient is doing well, no complaints, stable vital signs, no apparent adverse anesthesia problems. No complications reported per nursing. D/C home per [facility] [place] Criteria: Yes ROXI WESLEY CRNA September 28, 2018 14:32
== END 2018-09-27 14:50 | disposition home or self-care (01) ==
LOC: SDC 06:18 → WS 10:00 → SDC 14:50
PROVIDERS: ATTEND Obstetrics & Gynecology
DX: N80.0 Endometriosis of uterus (principal); N83.8 Other noninflammatory disorders of ovary, fallopian tube and broad ligament; N92.0 Excessive and frequent menstruation with regular cycle; Z87.891 Personal history of nicotine dependence
CPT/HCPCS: 36415; 84703; 86850; 86900; 86901